=== PATIENT | female | born 1945 | race African-American/Black ===

== ENCOUNTER → 2020-08-25 08:43 | Outpatient (BNVA) | payer BC, SELFPAY | PROVIDERS: PCP Internal Medicine; Visit Provider Nurse Practitioner Family ==

== ENCOUNTER → 2020-09-08 13:15 | Outpatient (BNVA) | payer BC, SELFPAY | PROVIDERS: PCP Internal Medicine; Visit Provider Nurse Practitioner Family ==

== ENCOUNTER → 2020-09-20 11:32 | Outpatient (BNVA) | payer BC, SELFPAY | PROVIDERS: Visit Provider Nurse Practitioner Family ==

== ENCOUNTER → 2020-10-18 15:17 | Outpatient (BNVA) | payer BC, SELFPAY | PROVIDERS: PCP Counselor Mental Health; Visit Provider Nurse Practitioner Family ==

== ENCOUNTER → 2020-11-17 15:26 | Outpatient (BNVA) | payer BC, SELFPAY | PROVIDERS: Visit Provider Nurse Practitioner Family ==

== ENCOUNTER → 2020-12-05 14:07 | Outpatient (BNVA) | payer BC, SELFPAY | PROVIDERS: Visit Provider Family Medicine Adult Medicine ==

== ENCOUNTER 2020-12-20 06:29 | Outpatient (REF) | payer BC, SELFPAY ==
--- NOTE | ~2020-12-20 | FL_ITS ---
EXAMINATION: XR FLUOROSCOPY WITH IMAGES CLINICAL INFORMATION: Bilateral transforaminal epidural COMPARISON: None. TECHNIQUE: Fluoroscopy performed by Dr. Sherwin Koo. Fluoroscopy time: 1.0 minutes DAP: 6.36 Gycm2 Images: 2 FINDINGS: There are spinal needles overlying the bilateral outer L5 neural foramen. There is contrast seen in the respective nerve sheaths along with transforaminal epidural extension. No visible vascular communication. FL/FL guidance in treatment room IMPRESSION: Fluoroscopy for pain management procedures.
== END 2020-12-20 06:30 | disposition home or self-care (01) ==
LOC: HO.RADIR 06:29
PROVIDERS: Visit Provider Internal Medicine
DX: M54.16 Radiculopathy, lumbar region (principal)
CPT/HCPCS: 64483; 64484; J1100; Q9967

== ENCOUNTER → 2021-01-02 14:57 | Outpatient (BNVA) | payer BC, SELFPAY | PROVIDERS: PCP Counselor Mental Health; Visit Provider Nurse Practitioner Family | DX: M25.561 Pain in right knee (principal); M25.562 Pain in left knee; G89.29 Other chronic pain; M54.16 Radiculopathy, lumbar region ==

== ENCOUNTER → 2021-01-31 14:55 | Outpatient (BNVA) | payer BC, SELFPAY | PROVIDERS: Visit Provider Nurse Practitioner Family | DX: M25.561 Pain in right knee (principal); M25.562 Pain in left knee; G89.29 Other chronic pain; M54.16 Radiculopathy, lumbar region ==

== ENCOUNTER → 2021-02-28 09:45 | Outpatient (BNVA) | payer BC, SELFPAY | PROVIDERS: Visit Provider Nurse Practitioner Family | DX: M25.561 Pain in right knee (principal); M25.562 Pain in left knee; G89.29 Other chronic pain; M54.16 Radiculopathy, lumbar region ==

== ENCOUNTER 2021-03-28 06:51 | Outpatient (REF) | payer BC, SELFPAY | END 2021-03-28 06:52 | disposition home or self-care (01) | LOC: HO.RADIR 06:51 | PROVIDERS: Visit Provider Internal Medicine | DX: M25.561 Pain in right knee (principal); M25.562 Pain in left knee; G89.29 Other chronic pain | CPT/HCPCS: 64450 ==

== ENCOUNTER → 2021-04-02 10:01 | Outpatient (BNVA) | payer BC, SELFPAY | PROVIDERS: PCP Physician Assistant; Visit Provider Internal Medicine ==

== ENCOUNTER → 2021-04-25 10:02 | Outpatient (BNVA) | payer BC, SELFPAY | PROVIDERS: PCP Physician Assistant; Visit Provider Nurse Practitioner Family ==

== ENCOUNTER → 2021-05-29 09:50 | Outpatient (BNVA) | payer BC, SELFPAY | PROVIDERS: PCP Physician Assistant; Visit Provider Nurse Practitioner Family ==

== ENCOUNTER 2021-06-20 06:46 | Outpatient (REF) | payer BC, SELFPAY | END 2021-06-20 06:47 | disposition home or self-care (01) | LOC: HO.RADIR 06:46 | PROVIDERS: Visit Provider Internal Medicine | DX: M25.562 Pain in left knee (principal); M25.561 Pain in right knee; Z79.899 Other long term (current) drug therapy | CPT/HCPCS: 64450; 64454; 64494 ==

== ENCOUNTER → 2021-06-26 15:27 | Outpatient (BNVA) | payer BC, SELFPAY | PROVIDERS: PCP Physician Assistant; Visit Provider Nurse Practitioner Family ==

== ENCOUNTER → 2021-07-25 15:29 | Outpatient (BNVA) | payer BC, SELFPAY | PROVIDERS: PCP Physician Assistant; Visit Provider Nurse Practitioner Family ==

== ENCOUNTER → 2021-08-15 13:09 | Day surgery (SDC) | payer BC, SELFPAY ==
--- NOTE | ~2021-08-15 | FL_ITS ---
EXAMINATION: XR FLUOROSCOPY WITH IMAGES CLINICAL INFORMATION: Knee pain COMPARISON: None. TECHNIQUE: Fluoroscopy performed by Dr. Koo. Fluoroscopy time: 0.7 minutes DAP: 3.70 Gycm2 Images: 4 FINDINGS: Images show needles positioned about the distal femur and proximal tibia. There is narrowing of the medial joint space compartment with marginal spurring. Patellofemoral joint is not well seen but I suspect some prominent spurring being present. FL/FL guidance in OR IMPRESSION: Fluoroscopy provided for pain management.
--- NOTE | 2021-08-16 08:10 | MHC.SHP ---
Pre-Procedural Eval Section A Date of Service: 08/16/21 The patient is an INPATIENT: No Changes since office visit: Yes Patient answered all questions The History & Physical has been completed within 30 days and I have reviewed it.: No Section B Chief Complaint: right knee pain Relevant Family History (Specify if Yes): No Relevant Social History: None Allergies: Allergies Allergy/AdvReac Type Severity Reaction Status Date / Time blue dye AdvReac Severe n/v Verified 07/25/21 15:34 ciprofloxacin [From Cipro] AdvReac Severe mental Verified 07/25/21 15:34 status changes promethazine [From Phenergan] AdvReac Intermediate panic Verified 07/25/21 15:34 attacks tizanidine AdvReac Mild Palpitation Verified 07/25/21 15:34 s Plan Diagnosis/Plan: Unchanged I have reviewed the history and physical and performed a pertinent physical examination on my patient. No changes have occurred unless specified.
--- NOTE | 2021-08-16 09:28 | P.BOP_ITS ---
Brief Operative Note Date of Service: 08/16/21 Pre-op diagnosis: Right knee pain Post-op diagnosis: same Procedure: Cooled radiofrequency ablation of the right knee genicular nerves Surgeon: Sherwin Koo MD Anesthesia: local Was an Threading Machine Feeder Automatic used for this Procedure?: No Estimated blood loss (mL): 3 Pathology: none sent Condition: stable Disposition: same day
--- NOTE | 2021-08-16 09:30 | W.PM.OPN ---
Operative Note Operative Note Date of Service: 08/15/21 Narrative: Genicular Nerve RFL - fluoroscopic guided - Superior medial, superior lateral, and inferior medial genicular nerve radiofrequency lesioning After obtaining written consent, pre-procedure blood pressure and heart rate were stable and recorded in the nursing record. Standard monitors were applied. The patient was placed supine on the fluoroscopy table. The area overlying the peripheral nerves was widely prepped with chloraprep, allowed to dry and sterilely draped. Using fluoroscopy, the appropriate landmarks were identified. The skin overlying the target was anesthetized with 0.5% lidocaine. A 17 gauge 50mm radiofrequency needle was advanced under fluoroscopic guidance to the appropriate landmark of each peripheral nerve. Verification using lateral and AP views. Aspiration was negative for heme and synovial fluid. Impedences were verified under 600 ohms. Sensory testing (50 Hz) and then motor testing (2 Hz) confirmed needle placement at each site within the appropriate voltage thresholds. Each site was injected with 0.5 ml 2% preservative-free lidocaine. Radiofrequency lesioning was performed for 165 seconds at 80 deg Celcius tissue temperature. The needles were removed, skin cleansed and a sterile bandage was applied. The patient tolerated the procedure well and no complications were encountered. Following the procedure the patient's vital signs were stable. The patient was discharged home in good condition with post-procedural instructions. Time Out: Immediately prior to the procedure, the following was verbally confirmed that there is a signed consent form and that the correct patient, planned procedure, site and side are consistent with documentation and that necessary equipment and/or blood products are available prior to the start of the case. Complications: none EBL: <5 cc
== END ==
PROVIDERS: Visit Provider Internal Medicine
PROC: (CPT 64624; principal; 2021-08-15 13:30)
DX: M25.561 Pain in right knee (principal)
CPT/HCPCS: 64624

== ENCOUNTER → 2021-09-12 08:59 | Outpatient (BNVA) | payer BC, SELFPAY | PROVIDERS: PCP Physician Assistant; Visit Provider Nurse Practitioner Family | DX: Z13.89 Encounter for screening for other disorder (principal) ==

== ENCOUNTER → 2021-10-10 08:58 | Outpatient (BNVA) | payer BC, SELFPAY | PROVIDERS: PCP Physician Assistant; Visit Provider Anesthesiology | DX: Z51.81 Encounter for therapeutic drug level monitoring (principal); F11.20 Opioid dependence, uncomplicated | CPT/HCPCS: 99211 ==

== ENCOUNTER 2021-11-07 06:01 | Outpatient (REF) | payer BC, SELFPAY ==
--- NOTE | ~2021-11-07 | FL_ITS ---
EXAMINATION: XR FLUOROSCOPY WITH IMAGES CLINICAL INFORMATION: Radiculopathy, lumbar region. COMPARISON: . TECHNIQUE: Fluoroscopy performed by Dr. Sherwin Koo. Fluoroscopy time: 0.8 minutes DAP: 1.74 Gy-cm2 Images: 2 FINDINGS: [place] and contrast are seen adjacent to the L5 neural foramina bilaterally with some transforaminal epidural extension. FL/FL guidance in treatment room IMPRESSION: Fluoroscopy for pain management procedure.
== END 2021-11-07 06:02 | disposition home or self-care (01) ==
LOC: HO.RADIR 06:01
PROVIDERS: Visit Provider Internal Medicine
DX: M54.16 Radiculopathy, lumbar region (principal)
CPT/HCPCS: 64483; J1100; Q9966

== ENCOUNTER → 2022-02-12 09:08 | Outpatient (BNVA) | payer MEDICARE, SELFPAY | PROVIDERS: PCP Physician Assistant; Visit Provider Nurse Practitioner Family | DX: Z79.891 Long term (current) use of opiate analgesic (principal) | CPT/HCPCS: 99211 ==

== ENCOUNTER 2022-02-13 10:15 | Day surgery (SDC) | payer MEDICARE, SELFPAY ==
[2022-02-07 16:01] VITALS: BMI 37.0
--- NOTE | 2022-02-12 09:30 | HO.ANESPROP2 ---
Documented by User: Bee Tillman NP 02/12/22 09:31 HPI - Anesthesia Eval Consult details Narrative: 76yo F for Left Genicular Nerve Cooled RFA Chronic opioids PMFSH Active Problems Active Problems: All Active Problems (Updated 02/07/22 @ 15:39 by Ramona Castaneda, RN) Muscle spasm (Acute) Bilateral lumbar radiculopathy (Acute) Bilateral knee pain (Acute) Arthralgia of shoulder region, right (Acute) Status post total shoulder arthroplasty (Acute) Past Medical History Medical History (Updated 02/07/22 @ 15:39 by Ramona Castaneda, ROB) Arthralgia of shoulder region, right Elevated cholesterol HTN (hypertension) Osteoarthritis TIA (transient ischemic attack) Surgical History Surgical History (Updated 02/07/22 @ 15:39 by Ramona Castaneda RN) History of bilateral carpal tunnel release Status post total shoulder arthroplasty Social History Social History Patient Tobacco Use Status: Never used Tobacco Are you DNR?: No Advance Directives: No Advance Directives Information Provided: Yes Meds Allergies Allergy/AdvReac Type Severity Reaction Status Date / Time blue dye AdvReac Severe n/v Verified 02/12/22 09:13 ciprofloxacin [From Cipro] AdvReac Severe mental Verified 02/12/22 09:13 status changes promethazine [From Phenergan] AdvReac Intermediate panic Verified 02/12/22 09:13 attacks tizanidine AdvReac Mild Palpitation Verified 02/12/22 09:13 s Home Medications Medication Instructions Recorded Confirmed Last Taken Type amlodipine 10 mg tablet 10 mg PO DAILY 08/25/20 02/12/22 02/13/22 History atorvastatin 40 mg tablet 40 mg PO DAILY 08/25/20 02/12/22 Unknown History buspirone 5 mg tablet 5 mg PO BID 08/25/20 02/12/22 02/13/22 History pantoprazole 40 mg tablet,delayed 40 mg PO DAILY 08/25/20 02/12/22 02/13/22 History release Exam Exam Date and Time: February 12, 2022 0930 Height,Weight and Vital Signs: Height 5 ft 3 in Weight 94.801 kg Assessment and Plan Assessment Anesthesia Assessment: Chart Reviewed Documented by User: Christina Olea MD 02/13/22 10:40 PMF Past Medical History Medical History (Updated 02/07/22 @ 15:39 by Ramona Castaneda RN) Arthralgia of shoulder region, right Elevated cholesterol HTN (hypertension) Osteoarthritis TIA (transient ischemic attack) Family History Family history of problems with anesthesia: No Surgical History Surgical History (Updated 02/07/22 @ 15:39 by Ramona Castaneda RN) History of bilateral carpal tunnel release Status post total shoulder arthroplasty History of Problems with Anesthesia: No Social History Social History Patient Tobacco Use Status: Never used Tobacco Are you DNR?: No Advance Directives: No Advance Directives Information Provided: Yes Meds Allergies Allergy/AdvReac Type Severity Reaction Status Date / Time blue dye AdvReac Severe n/v Verified 02/12/22 09:13 ciprofloxacin [From Cipro] AdvReac Severe mental Verified 02/12/22 09:13 status changes promethazine [From Phenergan] AdvReac Intermediate panic Verified 02/12/22 09:13 attacks tizanidine AdvReac Mild Palpitation Verified 02/12/22 09:13 s Home Medications Medication Instructions Recorded Confirmed Last Taken Type amlodipine 10 mg tablet 10 mg PO DAILY 08/25/20 02/12/22 02/13/22 History atorvastatin 40 mg tablet 40 mg PO DAILY 08/25/20 02/12/22 Unknown History buspirone 5 mg tablet 5 mg PO BID 08/25/20 02/12/22 02/13/22 History pantoprazole 40 mg tablet,delayed 40 mg PO DAILY 08/25/20 02/12/22 02/13/22 History release Exam Airway Mallampati Class: II (Caps everything) TM Dist: >3cm Neck ROM: Full Heart: rrr Lungs: cta Assessment and Plan Assessment Anesthesia Assessment: Anesthesia Plan Discussed and Chart Reviewed Final Anesthetic Review Family History of Problems with Anesthesia: No History of Problems with Anesthesia: No NPO: Yes ASA Class: III Final Preanesthetic Review: No Changes in Pt Med Stat, Meds/Allgs Chart Reviewed and Consent Obtained/Reviewed Patient Risk: Intermediate Procedure Risk: Intermediate Anesthetic Plan Anesthetic Plan: MAC: Disposition: Standard PACU
--- NOTE | ~2022-02-13 | FL_ITS ---
EXAMINATION: XR FLUOROSCOPY WITH IMAGES CLINICAL INFORMATION: Left knee RFA. COMPARISON: None. TECHNIQUE: Fluoroscopy performed by Dr. Sherwin Koo. Fluoroscopy time: 0.6 minutes. Cumulative Dose: 8.43 mGy. DAP: 1.64 Gycm2. Images: 3. FINDINGS: There are needles positioned along the medial and lateral aspect of distal femur cortex and medial proximal tibial cortex for radiofrequency ablation. There is [id number] loss of medial compartment joint space with periarticular spurring. No acute fracture, dislocation or lytic process seen. There is lateral intercondylar eminence spurring as well. FL/FL guidance in OR IMPRESSION: Fluoroscopy guidance was provided to referrer for pain management.
[2022-02-13 10:23] VITALS: BP 150/89; PULSE 99; RESP 18; TEMP 36.3; O2SAT 96
[2022-02-13] MEDS: Lactated Ringers 1,000 ML 100 ML IVCONT (10:51)
[2022-02-13 13:18] VITALS: BP 152/76; PULSE 87; RESP 16; TEMP 36.2; O2SAT 95
[2022-02-13 13:28] VITALS: RESP 18
[2022-02-13] MEDS: fentaNYL citrate/PF 100 MCG/2 ML VIAL 50 MCG IVPUSH (13:28)
[2022-02-13] MEDS: oxyCODONE HCl Immed Release 5 MG TABLET PO (13:29)
[2022-02-13 13:34] VITALS: BP 151/92; PULSE 86; RESP 17; O2SAT 96
[2022-02-13 13:54] VITALS: BP 155/82; PULSE 87; RESP 20; TEMP 36.1; O2SAT 99
--- NOTE | 2022-02-13 16:19 | MHC.SHP ---
Pre-Procedural Eval Section A Date of Service: 02/13/22 The patient is an INPATIENT: No Changes since office visit: Yes Patient answered all questions The History & Physical has been completed within 30 days and I have reviewed it.: No Section B Chief Complaint: chronic left knee pain Relevant Family History (Specify if Yes): No Relevant Social History: None Present Medications: see Short Stay Collaborative assessment Medical History: No relevant PMH History of Previous Operations: No relevant previous surgery Allergies: Allergies Allergy/AdvReac Type Severity Reaction Status Date / Time blue dye AdvReac Severe n/v Verified 02/12/22 09:13 ciprofloxacin [From Cipro] AdvReac Severe mental Verified 02/12/22 09:13 status changes promethazine [From Phenergan] AdvReac Intermediate panic Verified 02/12/22 09:13 attacks tizanidine AdvReac Mild Palpitation Verified 02/12/22 09:13 s Review of Systems Sugical H&P ROS: Negative: Constitution, Cardiovascular and Respiratory Exam Surgical H&P Exam: Normal: HEENT, Normal: Heart and Normal: Lungs Plan Diagnosis/Plan: Unchanged I have reviewed the history and physical and performed a pertinent physical examination on my patient. No changes have occurred unless specified.
--- NOTE | 2022-02-13 16:20 | P.BOP_ITS ---
Brief Operative Note Date of Service: 02/13/22 Pre-op diagnosis: Chronic left knee pain Post-op diagnosis: same Procedure: Cooled radiofrequency ablation of the left knee genicular nerves Surgeon: Sherwin Koo MD Anesthesia: MAC Was an Engineer Intern used for this Procedure?: No Estimated blood loss (mL): 5 Pathology: none sent Condition: stable Disposition: PACU
--- NOTE | 2022-02-13 16:21 | P.OP_ITS ---
Operative Note Operative Note Date of Service: 02/13/22 Narrative: Genicular Nerve RFL - fluoroscopic guided - Superior medial, superior lateral, and inferior medial genicular nerve radiofrequency lesioning After obtaining written consent, pre-procedure blood pressure and heart rate were stable and recorded in the nursing record. Standard monitors were applied. The patient was placed supine on the fluoroscopy table and sedated. The area overlying the peripheral nerves was widely prepped with chloraprep, allowed to dry and sterilely draped. Using fluoroscopy, the appropriate landmarks were identified. The skin overlying the target was anesthetized with 0.5% lidocaine. A 18 gauge 50mm radiofrequency needle was advanced under fluoroscopic guidance to the appropriate landmark of each peripheral nerve. Verification using lateral and AP views. Aspiration was negative for heme and synovial fluid. Impedences were verified under 600 ohms. Motor testing (2 Hz) confirmed needle placement at each site within the appropriate voltage thresholds. Each site was injected with 0.5 ml 2% preservative-free lidocaine. Radiofrequency lesioning was performed for 165 seconds at 80 deg Celcius tissue temperature. Each site was then injected with 1 ml 0.5% preservative-free ropiv acaine. The needles were removed, skin cleansed and a sterile bandage was applied. The patient tolerated the procedure well and no complications were encountered. Following the procedure the patient's vital signs were stable. The patient was discharged home in good condition with post-procedural instructions. Time Out: Immediately prior to the procedure, the following was verbally confirmed that there is a signed consent form and that the correct patient, planned procedure, site and side are consistent with documentation and that necessary equipment and/or blood products are available prior to the start of the case. Complications: none EBL: <5 cc
== END 2022-02-13 14:19 | disposition home or self-care (01) ==
PROVIDERS: PCP Physician Assistant; Visit Provider Internal Medicine
PROC: (CPT 64624; principal; 2022-02-13 11:40)
DX: M25.562 Pain in left knee (principal); G89.29 Other chronic pain; M19.90 Unspecified osteoarthritis, unspecified site; M54.16 Radiculopathy, lumbar region; M62.838 Other muscle spasm; I10 Essential (primary) hypertension; Z88.1 Allergy status to other antibiotic agents; Z88.8 Allergy status to other drugs, medicaments and biological substances; Z86.73 Personal history of transient ischemic attack (TIA), and cerebral infarction without residual deficits; Z96.612 Presence of left artificial shoulder joint; Z98.890 Other specified postprocedural states
CPT/HCPCS: 64624; J0690; J2250; J3010; J3300

== ENCOUNTER → 2022-04-16 15:59 | Outpatient (BNVA) | payer MEDICARE, SELFPAY | PROVIDERS: PCP Physician Assistant; Visit Provider Nurse Practitioner Family | DX: Z51.81 Encounter for therapeutic drug level monitoring (principal); F11.20 Opioid dependence, uncomplicated; M25.561 Pain in right knee; M25.562 Pain in left knee; M54.16 Radiculopathy, lumbar region; M62.838 Other muscle spasm; G89.4 Chronic pain syndrome | CPT/HCPCS: 99212 ==

== ENCOUNTER → 2022-05-21 09:24 | Outpatient (BNVA) | payer MEDICARE, SELFPAY | PROVIDERS: PCP Physician Assistant; Visit Provider Nurse Practitioner Family | DX: Z51.81 Encounter for therapeutic drug level monitoring (principal); F11.20 Opioid dependence, uncomplicated | CPT/HCPCS: 99211 ==

== ENCOUNTER → 2022-06-20 09:19 | Outpatient (BNVA) | payer MEDICARE, SELFPAY | PROVIDERS: PCP Physician Assistant; Visit Provider Nurse Practitioner Family | DX: Z51.81 Encounter for therapeutic drug level monitoring (principal); M25.561 Pain in right knee; M25.562 Pain in left knee; M54.16 Radiculopathy, lumbar region; M62.838 Other muscle spasm; G89.29 Other chronic pain; Z79.891 Long term (current) use of opiate analgesic | CPT/HCPCS: 99212 ==

== ENCOUNTER → 2022-07-18 09:22 | Outpatient (BNVA) | payer MEDICARE, SELFPAY | PROVIDERS: PCP Physician Assistant; Visit Provider Nurse Practitioner Family | DX: Z51.81 Encounter for therapeutic drug level monitoring (principal); M25.561 Pain in right knee; M25.562 Pain in left knee; M17.0 Bilateral primary osteoarthritis of knee; M54.16 Radiculopathy, lumbar region; M62.838 Other muscle spasm; G89.29 Other chronic pain; R51.9 Headache, unspecified; Z79.891 Long term (current) use of opiate analgesic | CPT/HCPCS: 99212 ==

== ENCOUNTER → 2022-08-15 09:19 | Outpatient (BNVA) | payer MEDICARE, SELFPAY | PROVIDERS: PCP Physician Assistant; Visit Provider Nurse Practitioner Family | DX: Z51.81 Encounter for therapeutic drug level monitoring (principal); M25.561 Pain in right knee; M25.562 Pain in left knee; M17.0 Bilateral primary osteoarthritis of knee; M54.16 Radiculopathy, lumbar region; M62.838 Other muscle spasm; R51.9 Headache, unspecified; G89.29 Other chronic pain; Z79.891 Long term (current) use of opiate analgesic | CPT/HCPCS: 99212 ==

== ENCOUNTER 2022-08-19 08:42 | Outpatient (REF) | payer MEDICARE, SELFPAY ==
--- NOTE | ~2022-08-19 | XR_ITS ---
EXAMINATION: XR KNEE, RIGHT XR KNEE, LEFT XR KNEE AP STANDING CLINICAL INFORMATION: Pain. COMPARISON: None. TECHNIQUE: Four views of the right knee. Four views of the left knee. AP bilateral standing view of the knees was obtained. FINDINGS: Right knee: Bony mineralization is normal. There is marked asymmetric narrowing of the medial joint space compartment. The lateral joint space compartment is well-maintained. There is a mild varus configuration. There is marked narrowing of the patellofemoral compartment, most pronounced laterally. There is tricompartment peripheral osteophyte formation. No fracture or dislocation is seen. There is chondrocalcinosis. No fracture or dislocation is seen. No foreign body is seen. There is a dystrophic soft tissue calcification within the lower calf. Left knee: Bony mineralization is normal. There is marked asymmetric narrowing of the medial joint space compartment. The lateral joint space compartment is well-maintained. There is a mild varus configuration. There is marked narrowing of the patellofemoral compartment, most pronounced laterally. There is tricompartment peripheral osteophyte formation. There is chondrocalcinosis. No fracture or dislocation is seen. There is a soft tissue calcifications seen adjacent to the medial femoral condyle, possibly a Mendy-Stieda lesion related to a prior MCL injury. XR/XR knee standing BI IMPRESSION: 1. There is tricompartment osteoarthritic change of the right knee, most pronounced of the medial joint space compartment. There is a secondary mild varus configuration. 2. There is tricompartment osteoarthritic change of the left knee, most pronounced of the medial joint space compartment. There is a secondary mild varus configuration. 3. There is chondrocalcinosis, which may be associated with CPPD.
--- NOTE | ~2022-08-19 | XR_ITS ---
EXAMINATION: XR KNEE, RIGHT XR KNEE, LEFT XR KNEE AP STANDING CLINICAL INFORMATION: Pain. COMPARISON: None. TECHNIQUE: Four views of the right knee. Four views of the left knee. AP bilateral standing view of the knees was obtained. FINDINGS: Right knee: Bony mineralization is normal. There is marked asymmetric narrowing of the medial joint space compartment. The lateral joint space compartment is well-maintained. There is a mild varus configuration. There is marked narrowing of the patellofemoral compartment, most pronounced laterally. There is tricompartment peripheral osteophyte formation. No fracture or dislocation is seen. There is chondrocalcinosis. No fracture or dislocation is seen. No foreign body is seen. There is a dystrophic soft tissue calcification within the lower calf. Left knee: Bony mineralization is normal. There is marked asymmetric narrowing of the medial joint space compartment. The lateral joint space compartment is well-maintained. There is a mild varus configuration. There is marked narrowing of the patellofemoral compartment, most pronounced laterally. There is tricompartment peripheral osteophyte formation. There is chondrocalcinosis. No fracture or dislocation is seen. There is a soft tissue calcifications seen adjacent to the medial femoral condyle, possibly a Mendy-Stieda lesion related to a prior MCL injury. XR/XR knee RT 2V IMPRESSION: 1. There is tricompartment osteoarthritic change of the right knee, most pronounced of the medial joint space compartment. There is a secondary mild varus configuration. 2. There is tricompartment osteoarthritic change of the left knee, most pronounced of the medial joint space compartment. There is a secondary mild varus configuration. 3. There is chondrocalcinosis, which may be associated with CPPD.
--- NOTE | ~2022-08-19 | XR_ITS ---
EXAMINATION: XR KNEE, RIGHT XR KNEE, LEFT XR KNEE AP STANDING CLINICAL INFORMATION: Pain. COMPARISON: None. TECHNIQUE: Four views of the right knee. Four views of the left knee. AP bilateral standing view of the knees was obtained. FINDINGS: Right knee: Bony mineralization is normal. There is marked asymmetric narrowing of the medial joint space compartment. The lateral joint space compartment is well-maintained. There is a mild varus configuration. There is marked narrowing of the patellofemoral compartment, most pronounced laterally. There is tricompartment peripheral osteophyte formation. No fracture or dislocation is seen. There is chondrocalcinosis. No fracture or dislocation is seen. No foreign body is seen. There is a dystrophic soft tissue calcification within the lower calf. Left knee: Bony mineralization is normal. There is marked asymmetric narrowing of the medial joint space compartment. The lateral joint space compartment is well-maintained. There is a mild varus configuration. There is marked narrowing of the patellofemoral compartment, most pronounced laterally. There is tricompartment peripheral osteophyte formation. There is chondrocalcinosis. No fracture or dislocation is seen. There is a soft tissue calcifications seen adjacent to the medial femoral condyle, possibly a Mendy-Stieda lesion related to a prior MCL injury. XR/XR knee LT 2V IMPRESSION: 1. There is tricompartment osteoarthritic change of the right knee, most pronounced of the medial joint space compartment. There is a secondary mild varus configuration. 2. There is tricompartment osteoarthritic change of the left knee, most pronounced of the medial joint space compartment. There is a secondary mild varus configuration. 3. There is chondrocalcinosis, which may be associated with CPPD.
== END 2022-08-19 08:43 | disposition home or self-care (01) ==
LOC: HO.HOSX 08:42
PROVIDERS: Visit Provider Orthopaedic Surgery
DX: M17.0 Bilateral primary osteoarthritis of knee (principal)
CPT/HCPCS: 20610; 73560; 73565; 99202; J1100

== ENCOUNTER → 2022-09-12 09:42 | Outpatient (BNVA) | payer MEDICARE, SELFPAY | PROVIDERS: PCP Physician Assistant; Visit Provider Nurse Practitioner Family | DX: Z51.81 Encounter for therapeutic drug level monitoring (principal); M25.561 Pain in right knee; M25.562 Pain in left knee; M17.0 Bilateral primary osteoarthritis of knee; M54.16 Radiculopathy, lumbar region; G89.29 Other chronic pain; Z79.891 Long term (current) use of opiate analgesic | CPT/HCPCS: 99212 ==

== ENCOUNTER → 2022-09-20 09:00 | Outpatient (BNVA) | payer MEDICARE, SELFPAY | PROVIDERS: PCP Physician Assistant; Visit Provider Orthopaedic Surgery | DX: M65.331 Trigger finger, right middle finger (principal); M65.341 Trigger finger, right ring finger; M65.332 Trigger finger, left middle finger; R20.0 Anesthesia of skin | CPT/HCPCS: 99202 ==

== ENCOUNTER → 2022-10-03 12:31 | Day surgery (SDC) | payer MEDICARE, SELFPAY ==
[2022-10-03 13:09] VITALS: BMI 36.6
[2022-10-03 15:43] VITALS: BP 154/71; PULSE 97; RESP 16; TEMP 36.8; O2SAT 96
--- NOTE | 2022-10-03 15:58 | MHC.SHP ---
Pre-Procedural Eval Section A Date of Service: 10/03/22 The patient is an INPATIENT: No Changes since office visit: No Cold of Flu in the past 2 weeks, No New Medical Problems, No Changes in Medication and No Patient answered all questions The History & Physical has been completed within 30 days and I have reviewed it.: Yes Section B Chief Complaint: Trigger finger, right middle finger and ring finge Allergies: Allergies Allergy/AdvReac Type Severity Reaction Status Date / Time blue dye AdvReac Severe n/v Verified 09/12/22 09:52 ciprofloxacin [From Cipro] AdvReac Severe mental Verified 09/12/22 09:52 status changes promethazine [From Phenergan] AdvReac Intermediate panic Verified 09/12/22 09:52 attacks tizanidine AdvReac Mild Palpitation Verified 09/12/22 09:52 s Plan I have reviewed the history and physical and performed a pertinent physical examination on my patient. No changes have occurred unless specified. Time Spent With Patient Time: Total time managing care of this patient today ____ minutes.
--- NOTE | 2022-10-03 15:58 | W.PM.OPN ---
Operative Note Operative Note Date of Service: 10/03/22 Narrative: Operative Note Preop diagnosis: 1. right middle finger Trigger finger 2. Right ring finger trigger finger Postop diagnosis: same Procedure: 1. right middle finger A1 shabbir release 2. Right ring finger A1 shabbir release Surgeon: Alvina Kapoor MD Anesthesia: local block using 1% lidocaine with epinephrine Findings: No locking or catching after A1 shabbir release EBL: Less than 5 mL Tourniquet time: None Specimens: None Complications: None Disposition: Brought to recovery room in stable condition Plan: Follow-up for 10-14 days for wound check and suture removal Indications: The patient is 77 years old, with right middle finger and right ring finger trigger fingers that have been unresponsive to nonoperative management. The risks and benefits of operative treatment including but not limited to risk of damage to blood vessels, nerves, tendons, infection, persistent pain, persistent symptoms, recurrence or possible need for additional surgery were discussed with the patient and the patient wishes to proceed with surgery. Procedure: Once consent was obtained a local block was performed in the preop area using a combination of 1% lidocaine with epinephrine. The patient was then brought back to the operating suite and placed on the operative table in supine position. The right upper extremity was prepped and draped in a standard surgical fashion. Once assured that we had a good block, a 1.5 cm oblique incision was made centered over the A1 shabbir of the right ring finger . The incision was made through the skin to the subcutaneous tissues using a #15 blade. Careful dissection was made down to the level of the A1 shabbir using tenotomy scissors, with care being taken to protect the nearby neurovascular structures. A longitudinal incision was made in the A1 shabbir 1st using a #15 blade, then using tenotomy scissors under direct visualization. The A1 shabbir was noted to be thickened. Following our A1 shabbir release, we no longer saw any locking or catching of the digit with flexion and extension. Once assured that we had a good block, a 1.5 cm oblique incision was made centered over the A1 shabbir of the right middle finger . The incision was made through the skin to the subcutaneous tissues using a #15 blade. Careful dissection was made down to the level of the A1 shabbir using tenotomy scissors, with care being taken to protect the nearby neurovascular structures. A longitudinal incision was made in the A1 shabbir 1st using a #15 blade, then using tenotomy scissors under direct visualization. The A1 shabbir was noted to be thickened. Following our A1 shabbir release, we no longer saw any locking or catching of the digit with flexion and extension. Once satisfied with our A1 shabbir release the wounds were copiously irrigated with normal saline and hemostasis was obtained with a brief period of local pressure. The skin edges were reapproximated with some 5.0 nylon suture material and a sterile dressing was applied. The patient appears to have tolerated the procedure well and with no complications. All digits were well vascularized at the conclusion of the case.
== END | disposition home or self-care (01) ==
PROVIDERS: PCP Physician Assistant; Visit Provider Orthopaedic Surgery
PROC: (CPT 26055; principal; 2022-10-03 12:40)
DX: M65.331 Trigger finger, right middle finger (principal); M65.341 Trigger finger, right ring finger; M19.90 Unspecified osteoarthritis, unspecified site; I10 Essential (primary) hypertension; E78.00 Pure hypercholesterolemia, unspecified; Z88.1 Allergy status to other antibiotic agents; Z88.8 Allergy status to other drugs, medicaments and biological substances; Z91.041 Radiographic dye allergy status; Z86.73 Personal history of transient ischemic attack (TIA), and cerebral infarction without residual deficits
CPT/HCPCS: 26055 ×2; J0171

== ENCOUNTER → 2022-10-16 12:54 | Outpatient (BNVA) | payer MEDICARE, SELFPAY | PROVIDERS: PCP Physician Assistant; Visit Provider Orthopaedic Surgery | DX: Z47.89 Encounter for other orthopedic aftercare (principal) | CPT/HCPCS: 99211 ==

== ENCOUNTER 2022-11-06 09:22 | Outpatient (REF) | payer MEDICARE, SELFPAY ==
--- NOTE | 2022-11-06 09:27 | EMG_ITS ---
Please see scanned EMG / Nerve Conduction Report. MTDD
== END 2022-11-06 09:23 | disposition home or self-care (01) ==
LOC: HO.NEURO 09:22
PROVIDERS: PCP Physician Assistant; Visit Provider Orthopaedic Surgery
DX: R20.0 Anesthesia of skin (principal)
CPT/HCPCS: 95885; 95910

== ENCOUNTER → 2022-11-14 12:52 | Outpatient (BNVA) | payer MEDICARE, SELFPAY | PROVIDERS: PCP Physician Assistant; Visit Provider Nurse Practitioner Family | DX: M25.561 Pain in right knee (principal); M25.562 Pain in left knee; M17.0 Bilateral primary osteoarthritis of knee; M54.16 Radiculopathy, lumbar region; G89.29 Other chronic pain; Z79.891 Long term (current) use of opiate analgesic | CPT/HCPCS: 99212 ==

== ENCOUNTER 2022-11-29 12:10 | Outpatient (AMB) | payer MEDICARE, SELFPAY ==
[2022-11-29 12:17] VITALS: BMI 36.6
--- NOTE | 2022-11-29 12:17 | MHC.OFFVIS ---
Intake Vital Signs 11/29/22 12:17 Height 5 ft 4 in Weight 213 lb BMI 36.6 Intake Visit Reasons: OV- EMG Review CTS Lt Intake Note: Bing 77 yr old female presents today for her left hand EMG review. States she has hx of B/L CTR in 2009. Allergies blue dye Adverse Reaction (Severe, Verified 11/29/22 12:19) n/v ciprofloxacin [From Cipro] Adverse Reaction (Severe, Verified 11/29/22 12:19) mental status changes promethazine [From Phenergan] Adverse Reaction (Intermediate, Verified 11/29/22 12:19) panic attacks tizanidine Adverse Reaction (Mild, Verified 11/29/22 12:19) Palpitations HPI OV- EMG Review CTS Lt HPI Details Bing is a 77 year old right hand dominant woman who returns for a NCS review of her left hand numbness. She has dense numbness in the median nerve distribution of her left hand, which began ~1 year ago. She has normal sensation in the ulnar nerve distribution She reports a Hx of bilateral carpal tunnel releases in 2009 [facility] Medical History Arthralgia of shoulder region, right Elevated cholesterol HTN (hypertension) Osteoarthritis TIA (transient ischemic attack) Surgical History History of bilateral carpal tunnel release Status post total shoulder arthroplasty Social History Patient Tobacco Use Status: Never used Tobacco Review of Systems Const All systems reviewed & are unremarkable except as noted in HPI and below Physical Exam Vital Signs: BMI result Body Mass Index 36.6 Const General: no acute distress and alert Orientation/consciousness: patient oriented x3 Neuro General: patient oriented x3 Extrem Other: Evaluation of Left Upper Extremity: The patient is alert, oriented, and in no acute distress Neuro: Dense numbness in the median nerve distribution. Normal sensation in the ulnar nerve distribution No thenar or intrinsic wasting Still has APB muscle belly firing and good finger cross Vascular: Cap refill brisk ROM: She can make a fist and extend all her digits Nerve Conduction Study: Impression: Severe left Carpal tunnel syndrome, with mild denervation in the APB muscles Dr. Calvin 6/21/23 Psych Appearance: grossly normal Affect: normal affect Attitude: cooperative Assessment & Plan Assessment & Plan (1) Trigger finger, right middle finger: Code(s): M65.331 - Trigger finger, right middle finger (2) Trigger finger, right ring finger: Code(s): M65.341 - Trigger finger, right ring finger (3) Trigger finger, left middle finger: Code(s): M65.332 - Trigger finger, left middle finger (4) Carpal tunnel syndrome of left wrist: Code(s): G56.02 - Carpal tunnel syndrome, left upper limb Plan Assessment and plan: 1. Left Carpal tunnel syndrome, severe Recurrence S/P carpal tunnel release in ~2009 initially with good results, with numbness developing within the last year. With dense numbness in median nerve distribution I educated her about this condition I discussed treatment options The patient would like to proceed with surgery The risks and benefits of operative treatment were discussed with the patient and the patient wishes to proceed with surgery. These risks include, but are not limited to risk of damage to blood vessels, nerves, tendons, infection, recurrence, incomplete relief of preoperative symptoms, persistent pain, possible need for further surgery and the risks associated with regional blocks and anesthesia. The plan is to take the patient to the operating room sometime in the next few weeks for the following procedures: 1. Left REPEAT carpal tunnel release, under local 2. [ ] All of the preoperative paperwork including the consent was filled out today. All the patient's questions were answered. The patient understands that they will be contacted by our clinical laboratory assistant soon to schedule this procedure She denies Diabetes, blood thinners, asthma, heart, lung, kidney issues 2. Left middle finger trigger finger She denies any locking or catching today 3. Right middle finger trigger finger, S/P release 4. Right ring finger trigger finger, S/P release DOS: 10/03/22 Resolved Scribed for Alvina Kapoor MD by Jose Juan Jenkins, manager medical device, on 11/29/22 at 12:45 PM, EST. Coding Level of Care Code Est Pt Level 4 (62919) Diagnoses Trigger finger, right middle finger M65.331 Trigger finger, right ring finger M65.341 Trigger finger, left middle finger M65.332 Carpal tunnel syndrome of left wrist G56.02
== END 2022-11-29 12:50 | disposition home or self-care (01) ==
PROVIDERS: Visit Provider Orthopaedic Surgery
DX: G56.02 Carpal tunnel syndrome, left upper limb (principal); M65.331 Trigger finger, right middle finger; M65.341 Trigger finger, right ring finger; M65.332 Trigger finger, left middle finger
CPT/HCPCS: 99214

== ENCOUNTER → 2022-11-29 12:10 | Outpatient (BNVA) | payer MEDICARE, SELFPAY | PROVIDERS: Visit Provider Orthopaedic Surgery | DX: Z47.89 Encounter for other orthopedic aftercare (principal); M65.332 Trigger finger, left middle finger; G56.02 Carpal tunnel syndrome, left upper limb; Z87.39 Personal history of other diseases of the musculoskeletal system and connective tissue | CPT/HCPCS: 99212 ==

== ENCOUNTER 2022-12-05 09:50 | Outpatient (AMB) | payer MEDICARE, SELFPAY ==
--- NOTE | 2022-12-05 10:33 | A.OFFVIS_ITS ---
Intake Intake Visit Reasons: OV-B/L knee pain last inj 08/19/22 Intake Note: Bing is a 77 year old female who presents today with complaints of bilateral knee pain, last injections done 08/19/22. Patient reports that she had great relief from the injections until abot 2 weeks ago. She would like to repeat injections today. Allergies blue dye Adverse Reaction (Severe, Verified 11/29/22 12:19) n/v ciprofloxacin [From Cipro] Adverse Reaction (Severe, Verified 11/29/22 12:19) mental status changes promethazine [From Phenergan] Adverse Reaction (Intermediate, Verified 11/29/22 12:19) panic attacks tizanidine Adverse Reaction (Mild, Verified 11/29/22 12:19) Palpitations HPI OV-B/L knee pain last inj 08/19/22 HPI Details Bing is a 77 year old woman with severe bilateral knee OA. She was last seen, and injected, on 08/19/22, with good relief and she would like to repeat injections today. She says her pain returned ~2 weeks ago She continues to take Oxycodone, 5mg TID. She complains of some worsening bilateral shoulder pain. She has a hx of left TSA in ~2007 COUNTS INCLUDE 234 BEDS AT THE [facility] Medical History Arthralgia of shoulder region, right Elevated cholesterol HTN (hypertension) Osteoarthritis TIA (transient ischemic attack) Surgical History History of bilateral carpal tunnel release Status post total shoulder arthroplasty Social History Patient Tobacco Use Status: Never used Tobacco Review of Systems Const All systems reviewed & are unremarkable except as noted in HPI and below Physical Exam Const General: no acute distress and alert Orientation/consciousness: patient oriented x3 Neuro General: patient oriented x3 Extrem Other: Bilateral Knees: TTP medial compartment Psych Appearance: grossly normal Affect: normal affect Attitude: cooperative Office Procedures Joint Injection/Drain Joint Injection/Drain Details: Injected 1 mL of Decadron and 3 mL 1% lidocaine and 3 mL of 0.25% Marcaine. Site was prepped using aseptic technique. Patient tolerated the procedure well. Primary Site: right knee Secondary Site: left knee Approach Used: anterolateral Coding - Large joint 02380 - Glenohumeral/Tronchanteric Bursa/Intraarticular Procedure code (CPT) selection complete Results Reviewed Results Reviewed: 12/05/22 10:35 BUPivacaine MPF 0.25 % [Sensorcaine-MPF 0.25% 10 ML] 10 ml .ROUTE .STK-MED ONE Lidocaine HCl 1 % [Xylocaine 1 %] 2 ml .ROUTE .STK-MED ONE Lidocaine HCl 2 % MPF [Xylocaine 2 % MPF] 5 ml .ROUTE .STK-MED ONE dexAMETHasone sod phosphate [Decadron] 4 mg .ROUTE .STK-MED ONE I personally reviewed relevant radiographs. Severe right knee osteoarthritis Moderate-severe left knee osteoarthritis Assessment & Plan Assessment & Plan (1) Bilateral primary osteoarthritis of knee: Code(s): M17.0 - Bilateral primary osteoarthritis of knee Plan: This is a 76 year old woman with severe bilateral knee OA. She has pain with daily activity, worse with prolonged ambulation, and she ambulates with an antalgic gait & assistive cane. She had good relief from her previous steroid injection on 08/19/22. She is not particularly limited in her daily activity when using her cane, and continues to take Oxycodone 5mg TID. I discussed her diagnosis and treatment options. I think she would benefit from knee arthroplasty in the future, but she is not particularly limited in her activity and I am concerned about her post-op recovery due to her Oxycodone use. I injected her bilateral knees today, which she tolerated well. She can follow up prn. Plan Scribed for Anatoliy Reyna MD by Jose Juan Jenkins, medical records technician, on 12/05/22 at 10:55 AM, EST. Coding Level of Care Code Est Pt Level 3 (31873) Diagnoses Bilateral primary osteoarthritis of knee M17.0 CPT Codes Coding - 47897 Large joint: 73474 - Large joint ([id number]) Coding - Joint 7: 34741 - Glenohumeral/Tronchanteric Bursa/Intraarticular ([id number])
== END 2022-12-05 10:50 | disposition home or self-care (01) ==
PROVIDERS: Visit Provider Orthopaedic Surgery
DX: M17.0 Bilateral primary osteoarthritis of knee (principal)
CPT/HCPCS: 20610; 99213

== ENCOUNTER → 2022-12-05 09:50 | Outpatient (BNVA) | payer MEDICARE, SELFPAY | PROVIDERS: Visit Provider Orthopaedic Surgery | DX: M17.0 Bilateral primary osteoarthritis of knee (principal) | CPT/HCPCS: 20610; 99212; J1100 ==

== ENCOUNTER 2022-12-12 08:56 | Outpatient (AMB) | payer MEDICARE, SELFPAY ==
[2022-12-12 09:13] VITALS: BP 140/76; PULSE 108; O2SAT 100; BMI 36.7
--- NOTE | 2022-12-12 09:13 | A.OFFVIS_ITS ---
Intake Vital Signs 12/12/22 09:13 Height 5 ft 4 in Weight 214 lb BMI 36.7 BP 140/76 H Blood Pressure Location Rt radial Position Sitting Pulse 108 H Pulse Source Pulse Oximeter Pulse Oximetry (%) 100 Oxygen Delivery Method Room Air Intake Visit Reasons: Pill count Intake Note: Bing comes in today for a pill count to oxycodone, patient should have 75 tablets and presents with 74 tablets. Patient last took today 12/12/22 at 6am. Pain today 01/26. Bing also states that she has upcoming surgery on her right hand scheduled for december 19. Nozzle Worker Required: No Accompanied by: Self / Same As Patient Allergies blue dye Adverse Reaction (Severe, Verified 12/12/22 09:14) n/v ciprofloxacin [From Cipro] Adverse Reaction (Severe, Verified 12/12/22 09:14) mental status changes promethazine [From Phenergan] Adverse Reaction (Intermediate, Verified 12/12/22 09:14) panic attacks tizanidine Adverse Reaction (Mild, Verified 12/12/22 09:14) Palpitations HPI HPI Comments History of Present Illness Details Patient is a pleasant 77 years old female who is presenting today for her pill count. This patient is supposed to have #75 pills in her possession and has #74. This demonstrates a responsible attitude in regards to the medication regimen. Patient reports mild to moderate analgesia with oxycodone 5 mg TID prn and reports increasing bilateral knee due to severe bilateral knee OA. She recently received bilateral cortisone knee injections on 12/05/[address] Reyna. She is hoping to have knee replacement in near future and decrease her opioid intake. Denies any fever, constipation, sedation, chest pain or tightness, shortness of breaths, dizziness or urinary retention. Patient reports increased swelling in both feet and had started diuretic medication per her PCP. She is following up with her PCP today for persistent foot swelling. Patient is also due for repeat Left CTS procedure on 12/19/[address] Kapoor. For post op pain management, patient may take oxycodone QID prn (instead TID) for 1 week starting 12/19/22 and refill will be provided 1 week earlier to accommodate for this on 12/30/22. Patient is aware to notify our office for any changes in her procedure date. [facility] Medical History Arthralgia of shoulder region, right Elevated cholesterol HTN (hypertension) Osteoarthritis TIA (transient ischemic attack) Surgical History History of bilateral carpal tunnel release Status post total shoulder arthroplasty Social History Patient Tobacco Use Status: Never used Tobacco Review of Systems Const All systems reviewed & are unremarkable except as noted in HPI and below Physical Exam Vital Signs: Last Vital Signs Pulse 108 H 12/12/22 09:13 BP 140/76 H 12/12/22 09:13 Pulse Ox 100 12/12/22 09:13 Oxygen Delivery Method Room Air 12/12/22 09:13 BMI result Body Mass Index 36.7 General: Appears afebrile. Alert and oriented. Mood and affect appropriate. Follows and participates in conversation appropriately. Respiratory effort is unlabored. No cough. Able to transition from sit to stand unassisted. Ambulates with bilaterally normal heel strike and toe off. Extrem General: Yes capillary refill normal, Yes no calf tenderness, No cyanosis and Yes pedal edema (bilateral non pitting +2, left>right) Right lower extremity: knee (Limited ROM.) Details: tenderness Location: of the medial joint line and of the lateral joint line and crepitus; no swelling, no ecchymosis and no unusual warmth Left lower extremity: knee (Limited ROM.) Details: tenderness Location: of the medial joint line and of the lateral joint line and crepitus; no swelling, no ecchymosis and no unusual warmth Psych Appearance: grossly normal and well kempt Mental Status: mental status grossly normal Speech and movement: Normal speech and movement present and Clear speech present Affect: normal affect Attitude: cooperative Thought process: Normal thought process present Thought content: Normal thought content present, suicidality (none), no hallucinations and No Depressive thoughts present Insight: Good insight present (Psych) Judgement: Good judgement present (Psych) Results Reviewed Results Reviewed: XR KNEE, RIGHT XR KNEE, LEFT XR KNEE AP STANDING 08/19/22 FINDINGS: Right knee: Bony mineralization is normal. There is marked asymmetric narrowing of the medial joint space compartment. The lateral joint space compartment is well-maintained. There is a mild varus configuration. There is marked narrowing of the patellofemoral compartment, most pronounced laterally. There is tricompartment peripheral osteophyte formation. No fracture or dislocation is seen. There is chondrocalcinosis. No fracture or dislocation is seen. No foreign body is seen. There is a dystrophic soft tissue calcification within the lower calf. Left knee: Bony mineralization is normal. There is marked asymmetric narrowing of the medial joint space compartment. The lateral joint space compartment is well-maintained. There is a mild varus configuration. There is marked narrowing of the patellofemoral compartment, most pronounced laterally. There is tricompartment peripheral osteophyte formation. There is chondrocalcinosis. No fracture or dislocation is seen. There is a soft tissue calcifications seen adjacent to the medial femoral condyle, possibly a Mendy-Stieda lesion related to a prior MCL injury. IMPRESSION: 1. There is tricompartment osteoarthritic change of the right knee, most pronounced of the medial joint space compartment. There is a secondary mild varus configuration. 2. There is tricompartment osteoarthritic change of the left knee, most pronounced of the medial joint space compartment. There is a secondary mild varus configuration. 3. There is chondrocalcinosis, which may be associated with CPPD. Assessment & Plan Assessment & Plan (1) Bilateral knee pain: Code(s): M25.561 - Pain in right knee; M25.562 - Pain in left knee Qualifiers: Chronicity: chronic Qualified Code(s): M25.561 - Pain in right knee; M25.562 - Pain in left knee; G89.29 - Other chronic pain (2) Bilateral primary osteoarthritis of knee: Code(s): M17.0 - Bilateral primary osteoarthritis of knee (3) Chronic pain syndrome: Code(s): G89.4 - Chronic pain syndrome (4) Bilateral lumbar radiculopathy: Code(s): M54.16 - Radiculopathy, lumbar region (5) Opioid contract exists: Code(s): Z79.891 - senior living (current) use of opiate analgesic Plan Patient has shown accountability for her medication regimen and the pill count was accurate. The patient reported no noted side effects. There is no evidence of misuse, abuse or diversion at this time. [employer] reviewed. Patient is due for repeat Left CTS procedure on 12/19/[address] Kapoor. For post op pain management, patient may take oxycodone QID prn (instead TID) for 1 week starting 12/19/22 and refill will be provided 1 week earlier to accommodate for this on 12/30/22. Patient is aware to notify our office for any changes in her procedure date. She also has follow up with her PCP regarding persistent bilateral feet edema unresponsive to recent treatment with diuretics per patient. All questions were answered and patient is in agreement of plan. Will follow up in 4 weeks for a pill count and sooner if needed. Medications: Refilled oxycodone Partial Fill upon patient request. 5 mg PO TID PRN 90 tabs 0RF pain 30 days G89.29 - Other chronic pain, G89.4 - Chronic pain syndrome, M25.561 - Pain in right knee, M25.562 - Pain in left knee, M54.16 - Radiculopathy, lumbar region, Z79.891 - senior living (current) use of opiate analgesic Coding Level of Care Code Est Pt Level 4 (33304) Diagnoses Bilateral knee pain M25.561; M25.562; G89.29 Chronicity: chronic Bilateral primary osteoarthritis of knee M17.0 Chronic pain syndrome G89.4 Bilateral lumbar radiculopathy M54.16 Opioid contract exists Z79.891
== END 2022-12-12 09:25 | disposition home or self-care (01) ==
PROVIDERS: PCP Physician Assistant; Visit Provider Nurse Practitioner Family
DX: M25.561 Pain in right knee (principal); M25.562 Pain in left knee; G89.29 Other chronic pain; M17.0 Bilateral primary osteoarthritis of knee; G89.4 Chronic pain syndrome; M54.16 Radiculopathy, lumbar region; Z79.891 Long term (current) use of opiate analgesic
CPT/HCPCS: 99214

== ENCOUNTER → 2022-12-12 08:56 | Outpatient (BNVA) | payer MEDICARE, SELFPAY | PROVIDERS: PCP Physician Assistant; Visit Provider Nurse Practitioner Family | DX: Z51.81 Encounter for therapeutic drug level monitoring (principal); M25.561 Pain in right knee; M25.562 Pain in left knee; M17.0 Bilateral primary osteoarthritis of knee; M54.16 Radiculopathy, lumbar region; G89.29 Other chronic pain; Z79.891 Long term (current) use of opiate analgesic | CPT/HCPCS: 99212 ==

== ENCOUNTER 2022-12-19 09:24 | Day surgery (SDC) | payer MEDICARE, SELFPAY ==
--- NOTE | 2022-12-19 09:05 | W.PM.OPN ---
Operative Note Operative Note Date of Service: 12/19/22 Narrative: Preop diagnosis: 1. Recurrent left Carpal tunnel syndrome Postop diagnosis: same Procedure: 1. Repeat left Carpal tunnel release Surgeon: Alvina Kapoor MD Anesthesia: local block using 1% lidocaine with epinephrine Findings: Thickened transverse carpal ligament. EBL: Less than 5 mL Specimens: None Complications: None Disposition: Brought to recovery room in stable condition Plan: Follow-up for 10-14 days for wound check and suture removal Indications: The patient is 77 years old, with recurrent left carpal tunnel syndrome that has been unresponsive to nonoperative management. The risks and benefits of operative treatment including but not limited to risk of damage to blood vessels, nerves, tendons, infection, persistent pain, persistent symptoms, or possible need for additional surgery were discussed with the patient and the patient wishes to proceed with surgery. Procedure: Once consent was obtained a local block was performed using a combination of 1% lidocaine with epinephrine. The patient was then brought back to the operating suite and placed on the operative table in supine position. The left upper extremity was prepped and draped in a standard surgical fashion. Once assured that we had a good block, a 2.0 cm longitudinal incision was made centered over the carpal tunnel and was extended in a zigzag fashion proximal to the distal wrist crease. The incision was made through the skin to the subcutaneous tissues using a #15 blade. Dissection was made down to the level of the palmaris longus and the volar forearm fascia. Longitudinal incision was made in the volar forearm fascia revealing to us the median nerve just proximal to the carpal tunnel. Under direct visualization while protecting the median nerve the scar tissue over the carpal tunnel was released using a 15. Blade and tenotomy scissors. Once satisfied with our carpal tunnel release the wound was copiously irrigated with normal saline and hemostasis was obtained with a brief period of local pressure. The skin edges were reapproximated with some 5.0 nylon suture material and a sterile dressing was applied. The patient appears to have tolerated the procedure well and with no complications. All digits were well vascularized at the conclusion of the case.
[2022-12-19 09:40] VITALS: BP 143/71; PULSE 111; RESP 18; TEMP 37.3; O2SAT 93; BMI 36.6
--- NOTE | 2022-12-19 12:30 | MHC.SHP ---
Pre-Procedural Eval Section A Date of Service: 12/19/22 The patient is an INPATIENT: No Changes since office visit: No Cold of Flu in the past 2 weeks, No New Medical Problems, No Changes in Medication and No Patient answered all questions The History & Physical has been completed within 30 days and I have reviewed it.: Yes Section B Chief Complaint: Carpal tunnel syndrome, left upper limb Allergies: Allergies Allergy/AdvReac Type Severity Reaction Status Date / Time blue dye AdvReac Severe n/v Verified 12/12/22 09:14 ciprofloxacin [From Cipro] AdvReac Severe mental Verified 12/12/22 09:14 status changes promethazine [From Phenergan] AdvReac Intermediate panic Verified 12/12/22 09:14 attacks tizanidine AdvReac Mild Palpitation Verified 12/12/22 09:14 s Plan I have reviewed the history and physical and performed a pertinent physical examination on my patient. No changes have occurred unless specified. Time Spent With Patient Time: Total time managing care of this patient today ____ minutes.
== END 2022-12-19 13:55 | disposition home or self-care (01) ==
PROVIDERS: PCP Physician Assistant; Visit Provider Orthopaedic Surgery
PROC: (CPT 64721; principal; 2022-12-19 10:50)
DX: G56.02 Carpal tunnel syndrome, left upper limb (principal); R20.0 Anesthesia of skin; Z98.890 Other specified postprocedural states; M19.011 Primary osteoarthritis, right shoulder; I10 Essential (primary) hypertension; E78.00 Pure hypercholesterolemia, unspecified; Z86.73 Personal history of transient ischemic attack (TIA), and cerebral infarction without residual deficits; Z91.041 Radiographic dye allergy status; Z88.1 Allergy status to other antibiotic agents; Z88.8 Allergy status to other drugs, medicaments and biological substances
CPT/HCPCS: 64721; J0171

== ENCOUNTER → 2022-12-19 09:24 | Outpatient (BNV) | payer MEDICARE, SELFPAY | PROVIDERS: PCP Physician Assistant; Visit Provider Orthopaedic Surgery | DX: G56.02 Carpal tunnel syndrome, left upper limb (principal) | CPT/HCPCS: 64721 ==

== ENCOUNTER 2022-12-31 09:17 | Outpatient (AMB) | payer MEDICARE, SELFPAY ==
[2022-12-31 09:20] VITALS: BMI 36.6
--- NOTE | 2022-12-31 09:20 | A.OFFVIS_ITS ---
Intake Vital Signs 12/31/22 09:20 Height 5 ft 4 in Weight 213 lb BMI 36.6 Intake Visit Reasons: PO LT Repeat CTR 12/19/22AR Intake Note: Bing is a 77 year old right hand dominant female who presents today for a post operative appointment for her left repeat CTR 12/19/22 AR. Patient reports it feels better than before the numbness is still present but its not causing her pain anymore. Allergies blue dye Adverse Reaction (Severe, Verified 12/31/22 09:22) n/v ciprofloxacin [From Cipro] Adverse Reaction (Severe, Verified 12/31/22 09:22) mental status changes promethazine [From Phenergan] Adverse Reaction (Intermediate, Verified 12/31/22 09:22) panic attacks tizanidine Adverse Reaction (Mild, Verified 12/31/22 09:22) Palpitations HPI PO LT Repeat CTR 12/19/22AR HPI Details 77-year-old right hand dominant female who presents in the office today 12 days status post repeat left carpal tunnel release, which was performed on 12/19/[address] Kapoor. The patient reports the left hand feels better now then it did before. However she states the numbness is still present, but is not causing pain anymore. [facility] Medical History Arthralgia of shoulder region, right Elevated cholesterol HTN (hypertension) Osteoarthritis TIA (transient ischemic attack) Surgical History History of bilateral carpal tunnel release Status post total shoulder arthroplasty Social History Patient Tobacco Use Status: Never used Tobacco Review of Systems Const All systems reviewed & are unremarkable except as noted in HPI and below Physical Exam Vital Signs: BMI result Body Mass Index 36.6 Const General: cooperative, healthy appearing and no acute distress Resp Effort & Inspection: normal respiratory effort and able to speak in complete sentences Cardio Rate: regular rate Peripheral pulses: Peripheral pulses 2+ throughout GI Palpation (GI): Soft to palpation Skin Lesions: no lesions Rashes: no rashes Extrem Other: Left wrist: Incision site is clean, dry, and intact. Suture intact. Full wrist flexion, extension, ulnar, and radial deviation with no limitation. She reports numbness with slight improvement since surgery. Capillary refill is brisk. Assessment & Plan Assessment & Plan (1) Carpal tunnel syndrome of left wrist: Code(s): G56.02 - Carpal tunnel syndrome, left upper limb Plan Ms. Corley is a 77-year-old right hand dominant female who presents in the office today 12 days status post repeat left carpal tunnel release, which was performed on 12/19/[address] Kapoor. The patient reports the left hand feels better now then it did before. However she states the numbness is still present, but is not causing pain anymore. Sutures were removed and steri-stripes were applied while in the office today. She may not wash dishes for 2 weeks and no heavy lifting for the next 4 weeks. I educated the patient that it takes about 6-9 months for symptoms to improve. After that time she will be at her base line. Follow up will be PRN, or sooner if needed. Patient Instructions: Scribed for Lainey Phillips PA-C by Amara De La Cruz medical staff manager, on 12/31/2022 at 9:19 am, EST. Coding Level of Care Code Global (02898) Diagnoses Carpal tunnel syndrome of left wrist G56.02
== END 2022-12-31 09:32 | disposition home or self-care (01) ==
PROVIDERS: PCP Physician Assistant; Visit Provider Physician Assistant
DX: G56.02 Carpal tunnel syndrome, left upper limb (principal); Z47.89 Encounter for other orthopedic aftercare
CPT/HCPCS: 99024

== ENCOUNTER → 2022-12-31 09:17 | Outpatient (BNVA) | payer MEDICARE, SELFPAY | PROVIDERS: PCP Physician Assistant; Visit Provider Physician Assistant ==

== ENCOUNTER 2023-01-06 08:38 | Outpatient (REF) | payer MEDICARE, SELFPAY | END 2023-01-06 08:39 | disposition home or self-care (01) | LOC: HO.HOSX 08:38 | PROVIDERS: Visit Provider Orthopaedic Surgery | DX: Z13.89 Encounter for screening for other disorder (principal) ==

== ENCOUNTER 2023-01-09 09:21 | Outpatient (AMB) | payer MEDICARE, SELFPAY ==
--- NOTE | 2023-01-09 09:21 | A.OFFVIS_ITS ---
Intake Vital Signs 01/09/23 09:27 01/09/23 09:42 Height 5 ft 4 in Weight 209 lb BMI 35.9 BP 144/76 H Blood Pressure Location Rt brachial Position Sitting Pulse 119 H 102 H Pulse Source Pulse Oximeter Pulse Oximeter Pulse Oximetry (%) 98 Oxygen Delivery Method Room Air Intake Visit Reasons: PILL COUNT Intake Note: Bing comes in today for a pill count to oxycodone, patient should have 72 tablets and presents with 72 tablets which she last took today 01/09/23 at 3am. Pain today is 10 Occupational Nurse Required: No Accompanied by: Self / Same As Patient Allergies blue dye Adverse Reaction (Severe, Verified 01/09/23 09:28) n/v ciprofloxacin [From Cipro] Adverse Reaction (Severe, Verified 01/09/23 09:28) mental status changes promethazine [From Phenergan] Adverse Reaction (Intermediate, Verified 01/09/23 09:28) panic attacks tizanidine Adverse Reaction (Mild, Verified 01/09/23 09:28) Palpitations HPI HPI Comments History of Present Illness Details Patient is a pleasant 77 years old female who is presenting today for her pill count. This patient is supposed to have #72 pills in her possession and has #72. This demonstrates a responsible attitude in regards to the medication regimen. Patient reports mild to moderate analgesia with oxycodone 5 mg TID prn and reports increasing bilateral knee due to severe bilateral knee OA. Last bilateral cortisone knee injections on 12/05/[address] Reyna with temporary partial results. She is hoping to have knee replacement in near future and decrease her opioid intake. Denies any fever, constipation, sedation, chest pain or tightness, shortness of breaths, dizziness or urinary retention. Patient reports current migraine headache with aura with intermittent visual disturbance in her left eye. Reports this is common to her and has been addressed with her PCP. Review of chart and today, is noted for chronically elevated HR 100-120's. She attributes this to stress with driving. I will refer patient to our Cardiology providers for further evaluation. Patient is status post repeat left carpal tunnel release on 12/19/[address] Kapoor. She reports the left hand feels better now, no pain but continues to feel numbness in her left thumb, 2nd and 3rd fingers. She has followed up with Orthopedics and was told it may take up to 9 months for symptoms to improve. Her left wrist incision is well healed. [facility] Medical History (Updated 01/09/23 @ 09:42 by CRISTHIAN Post) Arthralgia of shoulder region, right Elevated cholesterol HTN (hypertension) Osteoarthritis TIA (transient ischemic attack) Surgical History (Updated 01/09/23 @ 12:49 by CRISTHIAN Post) History of bilateral carpal tunnel release Status post total shoulder arthroplasty Social History Patient Tobacco Use Status: Never used Tobacco Review of Systems Const All systems reviewed & are unremarkable except as noted in HPI and below Card Denies chest pain, Denies chest pain with activity, Denies syncope, Denies lightheadedness and Denies dyspnea Resp Denies dyspnea Neuro Denies syncope Physical Exam Vital Signs: Last Vital Signs Pulse 102 H 01/09/23 09:42 BP 144/76 H 01/09/23 09:27 Pulse Ox 98 01/09/23 09:27 Oxygen Delivery Method Room Air 01/09/23 09:27 BMI result Body Mass Index 35.9 General: Appears afebrile. Alert and oriented. Mood and affect appropriate. Follows and participates in conversation appropriately. Respiratory effort is unlabored. No cough. Able to transition from sit to stand unassisted. Ambulates with bilaterally normal heel strike and toe off. Cardio Jugular venous distension: no JVD Rate: regular rate and tachycardic Rhythm: regular rhythm Bruits: no carotid bruits Peripheral pulses: radial pulses present Extrem General: Yes capillary refill normal, Yes no calf tenderness and No cyanosis Left upper extremity: wrist (Well healed incision. Full ROM. Residual numbness thumb, 2nd and 3rd finger) Right lower extremity: knee (Limited ROM due to pain) Details: tenderness Location: of the medial joint line and of the lateral joint line and crepitus; no swelling, no ecchymosis and no unusual warmth Left lower extremity: knee (Limited ROM due to pain) Details: tenderness Location: of the medial joint line and of the lateral joint line and crepitus; no swelling, no ecchymosis and no unusual warmth Psych Appearance: grossly normal and well kempt Mental Status: mental status grossly normal Speech and movement: Normal speech and movement present and Clear speech present Affect: normal affect Attitude: cooperative Thought process: Normal thought process present Thought content: Normal thought content present, suicidality (none), no hallucinations and No Depressive thoughts present Insight: Good insight present (Psych) Judgement: Good judgement present (Psych) Assessment & Plan Assessment & Plan (1) Tachycardia: Code(s): R00.0 - Tachycardia, unspecified (2) Bilateral primary osteoarthritis of knee: Code(s): M17.0 - Bilateral primary osteoarthritis of knee (3) Chronic pain syndrome: Code(s): G89.4 - Chronic pain syndrome (4) Opioid contract exists: Code(s): Z79.891 - care home (current) use of opiate analgesic (5) Bilateral knee pain: Code(s): M25.561 - Pain in right knee; M25.562 - Pain in left knee Qualifiers: Chronicity: chronic Qualified Code(s): M25.561 - Pain in right knee; M25.562 - Pain in left knee; G89.29 - Other chronic pain (6) Status post carpal tunnel release: Code(s): Z98.890 - Other specified postprocedural states Plan Patient has shown accountability for her medication regimen and the pill count was accurate. The patient reported no noted side effects. There is no evidence of misuse, abuse or diversion at this time. [employer] reviewed. Patient is also status post left carpal tunnel releas procedure on 12/19/[address] Kapoor, incision well healed, she has mild residual numbness but no pain. Next script for oxycodone-acetaminophen 5-325 mg w Cardiology referral placed for chronic tachycardia. Patient is asymptomatic and attributes this to anxiety and stress with driving. All questions were answered and patient is in agreement of plan. Will follow up in 4 weeks for a pill count and sooner if needed. Orders: Referrals Cardiology Referral I10 - Essential (primary) hypertension, R00.0 - Tachycardia, unspecified Medications: Refilled oxycodone Partial Fill upon patient request. 5 mg PO TID 30 days PRN 90 tabs 0RF pain G89.29 - Other chronic pain, G89.4 - Chronic pain syndrome, M25.561 - Pain in right knee, M25.562 - Pain in left knee, Z79.891 - long term care pharmacist (current) use of opiate analgesic Discontinued oxycodone-acetaminophen 5-325 mg Partial Fill upon patient request. Discontinued Reason: Patient Completed Course 1 tab PO Q6H PRN 5 tabs 0RF pain Coding Level of Care Code Est Pt Level 4 (82207) Diagnoses Tachycardia R00.0 Bilateral primary osteoarthritis of knee M17.0 Chronic pain syndrome G89.4 Opioid contract exists Z79.891 Bilateral knee pain M25.561; M25.562; G89.29 Chronicity: chronic Status post carpal tunnel release Z98.890
[2023-01-09 09:27] VITALS: BP 144/76; PULSE 119; O2SAT 98; BMI 35.9
[2023-01-09 09:42] VITALS: PULSE 102
== END 2023-01-09 09:40 | disposition home or self-care (01) ==
PROVIDERS: PCP Physician Assistant; Visit Provider Nurse Practitioner Family
DX: M17.0 Bilateral primary osteoarthritis of knee (principal); G89.4 Chronic pain syndrome; Z79.891 Long term (current) use of opiate analgesic; R00.0 Tachycardia, unspecified; M25.561 Pain in right knee; M25.562 Pain in left knee; G89.29 Other chronic pain; Z98.890 Other specified postprocedural states
CPT/HCPCS: 99214

== ENCOUNTER → 2023-01-09 09:21 | Outpatient (BNVA) | payer MEDICARE, SELFPAY | PROVIDERS: PCP Physician Assistant; Visit Provider Nurse Practitioner Family | DX: Z51.81 Encounter for therapeutic drug level monitoring (principal); F11.20 Opioid dependence, uncomplicated | CPT/HCPCS: 99212 ==

== ENCOUNTER 2023-01-13 08:36 | Outpatient (AMB) | payer MEDICARE, SELFPAY ==
[2023-01-13 08:47] VITALS: BMI 35.9
--- NOTE | 2023-01-13 08:47 | A.OFFVIS_ITS ---
Intake Vital Signs 01/13/23 08:47 Height 5 ft 4 in Weight 209 lb BMI 35.9 Intake Visit Reasons: new Prob- B/L shoulder pain - no XR Intake Note: Bing is a 77 year old right hand dominant female who presents today with new complaints of bilateral shoulder pain. Patient reports that she has had bilateral shoulder pain for quite some time. She has had her left shoulder replaced about 20+ years ago in [place]. She explains that the left shoulder has been more painful than the right. She is on a pain contract wiht Pain mgmt who gives her 5mg oxycodone, she also supplements with tylenol. Allergies blue dye Adverse Reaction (Severe, Verified 01/09/23 09:28) n/v ciprofloxacin [From Cipro] Adverse Reaction (Severe, Verified 01/09/23 09:28) mental status changes promethazine [From Phenergan] Adverse Reaction (Intermediate, Verified 01/09/23 09:28) panic attacks tizanidine Adverse Reaction (Mild, Verified 01/09/23 09:28) Palpitations HPI new Prob- B/L shoulder pain - no XR HPI Details Bing is a 77 year old woman who presents with complaints of bilateral shoulder pain, L>R. She has a hx of left TSA in 2008 years ago. She complains of pain in her shoulder for some time . She has pain with daily activity along with limited ROM & some swelling. She also complains of knee pain today, with known OA. She was last seen, and injected, on 12/05/22. She says her injections were helpful and her cane gives her more relief than pain medication . She says most of her knee pain occurs with inclimate weather changes. She follows with Pain Management for chronic pain syndrome, and takes 5mg Oxycodone TID, along with Tylenol for her pain. She complains of pain in her lower back [facility] Medical History Arthralgia of shoulder region, right Elevated cholesterol HTN (hypertension) Osteoarthritis TIA (transient ischemic attack) Surgical History History of bilateral carpal tunnel release Status post total shoulder arthroplasty Social History Patient Tobacco Use Status: Never used Tobacco Review of Systems Const All systems reviewed & are unremarkable except as noted in HPI and below Physical Exam Vital Signs: BMI result Body Mass Index 35.9 Const General: no acute distress, alert and awake Orientation/consciousness: patient oriented x3 HEENT Head: Yes normocephalic and Yes atraumatic Eyes EOM: EOMs intact bilaterally Resp Effort & Inspection: normal respiratory effort and able to speak in complete sentences Cardio Jugular venous distension: no JVD Skin General skin exam: turgor normal Rashes: no rashes Neuro General: patient oriented x3 Extrem Other: Bilateral Shoulders: + Impingement test Good strength in AB Limited ER bilaterally Psych Appearance: grossly normal Affect: normal affect Attitude: cooperative Office Procedures Joint Injection/Drain Joint Injection/Drain Details: Injected 1 mL of Decadron and 3 mL 1% lidocaine and 3 mL of 0.25% Marcaine. Site was prepped using aseptic technique. Patient tolerated the procedure well. Primary Site: right shoulder Approach Used: posterolateral Coding 55962 - Large joint Procedure code (CPT) selection complete Results Reviewed Results Reviewed: I personally reviewed relevant radiographs. Severe right shoulder OA Left shoulder: presence of left TSA with proximal migration of the humeral head & glenoid osteolysis Assessment & Plan Assessment & Plan (1) Osteoarthritis of right shoulder: Code(s): M19.011 - Primary osteoarthritis, right shoulder Plan: This is a 77 year old woman with severe right shoulder OA. She has pain with daily activity, along with limited ER. She follows with Pain Management and takes Oxycodone 5mg TID, with some relief. I discussed her diagnosis and treatment options. I injected her right shoulder today, which she tolerated well. She can follow up prn. (2) History of left shoulder replacement: Comment: 2007 Code(s): Z96.612 - Presence of left artificial shoulder joint Plan: Pain with daily activity, effusion, and limited ROM. I suspect there may be a component of hardware loosening. (3) Bilateral primary osteoarthritis of knee: Code(s): M17.0 - Bilateral primary osteoarthritis of knee Plan: Injected on 12/05/22, with some relief. She is not particularly limited in her daily activity when using her cane, and continues to take Oxycodone 5mg TID. Her complaint is of worsening pain related to inclimate weather. (4) Opioid contract exists: Code(s): Z79.891 - custodial (current) use of opiate analgesic (5) Chronic pain syndrome: Code(s): G89.4 - Chronic pain syndrome Plan Scribed for Anatoliy Reyna MD by Jose Juan Jenkins, medical records coordinator, on 01/13/23 at 9:15 AM, EST. Orders: Orders XR shoulder LT min 2V Today M25.519 - Pain in unspecified shoulder XR shoulder RT min 2V Today M25.519 - Pain in unspecified shoulder Coding Level of Care Code Est Pt Level 4 (16140) Diagnoses Osteoarthritis of right shoulder M19.011 History of left shoulder replacement Z96.612 Bilateral primary osteoarthritis of knee M17.0 Opioid contract exists Z79.891 Chronic pain syndrome G89.4 CPT Codes Coding - 56948 Large joint: 67921 - Large joint ([id number])
== END 2023-01-13 09:36 | disposition home or self-care (01) ==
PROVIDERS: PCP Physician Assistant; Visit Provider Orthopaedic Surgery
DX: M19.011 Primary osteoarthritis, right shoulder (principal); Z96.612 Presence of left artificial shoulder joint; M17.0 Bilateral primary osteoarthritis of knee; G89.4 Chronic pain syndrome
CPT/HCPCS: 20610; 99214

== ENCOUNTER 2023-01-13 08:38 | Outpatient (REF) | payer MEDICARE, SELFPAY ==
--- NOTE | ~2023-01-13 | XR_ITS ---
EXAMINATION: XR SHOULDER, RIGHT CLINICAL INFORMATION: Pain in unspecified shoulder COMPARISON: None available. TECHNIQUE: AP external rotation, Grashey, scapular Y, and axillary views of the right shoulder. FINDINGS: The bones are intact. No fracture. Glenohumeral and acromioclavicular alignment is anatomic. There is severe narrowing of the glenohumeral joint with [id number] appearance and large marginal osteophyte extending off the inferior aspect of the humeral head. Small marginal osteophyte is seen extending off the inferior aspect of the glenoid. There is minimal degenerative change of the acromioclavicular joint.. No abnormal soft tissue calcifications. XR/XR shoulder RT min 2V IMPRESSION: Severe osteoarthritis of the glenohumeral joint.
--- NOTE | ~2023-01-13 | XR_ITS ---
EXAMINATION: XR SHOULDER, LEFT CLINICAL INFORMATION: Pain in unspecified shoulder COMPARISON: None available. TECHNIQUE: AP external rotation, Grashey, scapular Y, and axillary views of the left shoulder. FINDINGS: The bones are intact. No fracture. 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 The hardware appears intact. There is superior subluxation of the humeral head with respect to the glenoid. The acromioclavicular joint is within normal limits. No abnormal soft tissue calcifications. XR/XR shoulder LT min 2V IMPRESSION: 1. No acute bony abnormality. 2. Prosthetic humeral head intact. 3. Superior subluxation of the humeral head with respect to the glenoid.
== END 2023-01-13 08:39 | disposition home or self-care (01) ==
LOC: HO.HOSX 08:38
PROVIDERS: Visit Provider Orthopaedic Surgery
DX: M19.011 Primary osteoarthritis, right shoulder (principal); M17.0 Bilateral primary osteoarthritis of knee; Z96.612 Presence of left artificial shoulder joint; Z79.891 Long term (current) use of opiate analgesic
CPT/HCPCS: 20610; 73030; 99212

== ENCOUNTER 2023-02-06 10:06 | Outpatient (AMB) | payer MEDICARE, SELFPAY ==
--- NOTE | 2023-02-06 10:06 | MHC.OFFVIS ---
Intake Vital Signs 02/06/23 10:15 Height 5 ft 4 in Weight 209 lb BMI 35.9 BP 183/83 H Blood Pressure Location Rt brachial Position Sitting Pulse 88 Pulse Source Pulse Oximeter Pulse Oximetry (%) 98 Oxygen Delivery Method Room Air Intake Visit Reasons: Pill Count/Confirmed Intake Note: Bing comes in today for a pill count to oxycodone, patient should have 78 tablets and presents with 78 tablets which she last took today 02/06/23 at 8am. Pain today 02/25. Key Worker Required: No Accompanied by: Self / Same As Patient Allergies blue dye Adverse Reaction (Severe, Verified 02/06/23 10:07) n/v ciprofloxacin [From Cipro] Adverse Reaction (Severe, Verified 02/06/23 10:07) mental status changes promethazine [From Phenergan] Adverse Reaction (Intermediate, Verified 02/06/23 10:07) panic attacks tizanidine Adverse Reaction (Mild, Verified 02/06/23 10:07) Palpitations HPI HPI Comments History of Present Illness Details Patient presents today for her pill count. This patient is supposed to have #78 pills in her possession and has #78. This demonstrates a responsible attitude in regards to the medication regimen. Patient reports adequate analgesia with oxycodone 5 mg TID prn with periods of moderate to severe knee and lower back pain due to cold weather changes or prolonged walking and distance. She follows with Orthopedic office for knee and shoulder pain and had discussion for total knee replacement. Patient reports cortisone knee injections provide her good but temporary pain relief. She ambulates with slow, antalgic gait with the use of cane. Denies any fever, sedation, chest pain or tightness, shortness of breaths, dizziness or urinary retention. Patient reports occasional constipation mildly relieved with stool softener and request script for laxative for as needed basis. Patient reports she also tries to incorporate dietary fiber and adequate daily fluid intake on regular basis. [facility], [facility] Medical History TIA (transient ischemic attack) Osteoarthritis Elevated cholesterol HTN (hypertension) Arthralgia of shoulder region, right Surgical History (Updated 02/06/23 @ 13:52 by CRISTHIAN Post) Status post carpal tunnel release History of bilateral carpal tunnel release Status post total shoulder arthroplasty Social History Patient Tobacco Use Status: Never used Tobacco Review of Systems Const All systems reviewed & are unremarkable except as noted in HPI and below Physical Exam Vital Signs: Last Vital Signs Pulse 88 02/06/23 10:15 BP 183/83 H 02/06/23 10:15 Pulse Ox 98 02/06/23 10:15 Oxygen Delivery Method Room Air 02/06/23 10:15 BMI result Body Mass Index 35.9 General: Appears afebrile. Alert and oriented. Mood and affect appropriate. Follows and participates in conversation appropriately. Respiratory effort is unlabored. No cough. Able to transition from sit to stand unassisted. Slow, antalgic gait. Uses cane with ambulation. Lumbar extension and flexion reproduces low back pain. Localized tenderness medial and joint aspects of both knees. Psych Appearance: grossly normal and well kempt Mental Status: mental status grossly normal Speech and movement: Normal speech and movement present and Clear speech present Affect: normal affect Attitude: cooperative Thought process: Normal thought process present Thought content: Normal thought content present, suicidality (none), no hallucinations and No Depressive thoughts present Insight: Good insight present (Psych) Judgement: Good judgement present (Psych) Results Reviewed Results Reviewed: XR KNEE, RIGHT XR KNEE, LEFT XR KNEE AP STANDING 08/19/22 FINDINGS: Right knee: Bony mineralization is normal. There is marked asymmetric narrowing of the medial joint space compartment. The lateral joint space compartment is well-maintained. There is a mild varus configuration. There is marked narrowing of the patellofemoral compartment, most pronounced laterally. There is tricompartment peripheral osteophyte formation. No fracture or dislocation is seen. There is chondrocalcinosis. No fracture or dislocation is seen. No foreign body is seen. There is a dystrophic soft tissue calcification within the lower calf. Left knee: Bony mineralization is normal. There is marked asymmetric narrowing of the medial joint space compartment. The lateral joint space compartment is well-maintained. There is a mild varus configuration. There is marked narrowing of the patellofemoral compartment, most pronounced laterally. There is tricompartment peripheral osteophyte formation. There is chondrocalcinosis. No fracture or dislocation is seen. There is a soft tissue calcifications seen adjacent to the medial femoral condyle, possibly a Mendy-Stieda lesion related to a prior MCL injury. IMPRESSION: 1. There is tricompartment osteoarthritic change of the right knee, most pronounced of the medial joint space compartment. There is a secondary mild varus configuration. 2. There is tricompartment osteoarthritic change of the left knee, most pronounced of the medial joint space compartment. There is a secondary mild varus configuration. 3. There is chondrocalcinosis, which may be associated with CPPD. Assessment & Plan Assessment & Plan (1) Opioid contract exists: Code(s): Z79.891 - terminal block assembler (current) use of opiate analgesic (2) Tachycardia: Code(s): R00.0 - Tachycardia, unspecified (3) Bilateral primary osteoarthritis of knee: Code(s): M17.0 - Bilateral primary osteoarthritis of knee (4) Chronic pain syndrome: Code(s): G89.4 - Chronic pain syndrome (5) Bilateral knee pain: Code(s): M25.561 - Pain in right knee; M25.562 - Pain in left knee Qualifiers: Chronicity: chronic Qualified Code(s): M25.561 - Pain in right knee; M25.562 - Pain in left knee; G89.29 - Other chronic pain Plan Patient has shown accountability for her medication regimen and the pill count was accurate. The patient reported no noted side effects except occasional constipation. Will add laxative for as needed use. There is no evidence of misuse, abuse or diversion at this time. Sensitive Object reviewed. Next script for oxycodone-acetaminophen 5-325 mg TID prn is sent with advanced date of 03/03/23. Follow up in 4 weeks for pill count and sooner if needed. Medications: New sennosides (Senna Laxative) 8.6 mg PO BID PRN 60 tabs 0RF constipation Z79.891 - terminal block assembler (current) use of opiate analgesic Refilled oxycodone Partial Fill upon patient request. 5 mg PO TID PRN 90 tabs 0RF pain 30 days G89.29 - Other chronic pain, G89.4 - Chronic pain syndrome, M25.561 - Pain in right knee, M25.562 - Pain in left knee, Z79.891 - skilled nursing (current) use of opiate analgesic Discontinued oxycodone Partial Fill upon patient request. Discontinued Reason: Duplicate 5 mg PO TID 30 days PRN 90 tabs 0RF pain G89.29 - Other chronic pain, G89.4 - Chronic pain syndrome, M25.561 - Pain in right knee, M25.562 - Pain in left knee, M54.16 - Radiculopathy, lumbar region, Z79.891 - skilled nursing (current) use of opiate analgesic Coding Level of Care Code Est Pt Level 4 (04934) Diagnoses Opioid contract exists Z79.891 Tachycardia R00.0 Bilateral primary osteoarthritis of knee M17.0 Chronic pain syndrome G89.4 Chronic pain of both knees M25.561; M25.562; G89.29 Chronicity: chronic
[2023-02-06 10:15] VITALS: BP 183/83; PULSE 88; O2SAT 98; BMI 35.9
== END 2023-02-06 10:24 | disposition home or self-care (01) ==
PROVIDERS: PCP Physician Assistant; Visit Provider Nurse Practitioner Family
DX: M17.0 Bilateral primary osteoarthritis of knee (principal); G89.4 Chronic pain syndrome; Z79.891 Long term (current) use of opiate analgesic; R00.0 Tachycardia, unspecified; M25.561 Pain in right knee; M25.562 Pain in left knee; G89.29 Other chronic pain
CPT/HCPCS: 99214

== ENCOUNTER → 2023-02-06 10:06 | Outpatient (BNVA) | payer MEDICARE, SELFPAY | PROVIDERS: PCP Physician Assistant; Visit Provider Nurse Practitioner Family | DX: G89.4 Chronic pain syndrome (principal); M17.0 Bilateral primary osteoarthritis of knee; R00.0 Tachycardia, unspecified; Z79.891 Long term (current) use of opiate analgesic | CPT/HCPCS: 99212 ==

== ENCOUNTER → 2023-03-06 09:15 | Outpatient (BNVA) | payer MEDICARE, SELFPAY | PROVIDERS: PCP Physician Assistant; Visit Provider Nurse Practitioner Family ==

== ENCOUNTER 2023-03-31 09:52 | Outpatient (AMB) | payer MEDICARE, SELFPAY ==
--- NOTE | 2023-03-31 09:54 | MHC.OFFVIS ---
Intake Vital Signs 03/31/23 10:01 Height 5 ft 4 in Weight 200 lb BMI 34.3 BP 181/80 H Blood Pressure Location Rt brachial Position Sitting Pulse 119 H Pulse Source Pulse Oximeter Pulse Oximetry (%) 96 Oxygen Delivery Method Room Air Intake Visit Reasons: PILL COUNT/LMOVM Intake Note: Bing comes in today for a pill count to oxycodone, patient should have 6 tablets and presents with 9 tablets which she last took today 03/31/23 at 4am. 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 This patient is supposed to have #6 pills in her possession and has #9. This demonstrates a responsible attitude in regards to the medication regimen. Patient reports inadequate analgesia with oxycodone 5 mg TID prn with frequent episodes of moderate to severe bilateral knee and shoulder pain due to cold weather changes, climbing stairs and prolonged walking. She has history of left shoulder replacement in 2007. Last right shoulder steroid injection on in December 2022 and bilateral knee steroid inejctions in 2022. Patient reports she is following up with Orthopedic office for knee and shoulder pain to repeat shoulder cortisone injection and consider gel injections for her knee pain and obtain knee bracing. Surgical discussion were also previously attempted. Patient reports cortisone knee injections provide her good but temporary pain relief. She ambulates with slow, antalgic gait with the use of cane. Pain negatively affects her daily functioning, ADLs, ability to walk or stand for longer periods of time. Current regime provides her partial pain relief that allows her to be less symptomatic. Denies any fever, sedation, chest pain or tightness, shortness of breaths, dizziness or urinary retention. Patient reports occasional constipation mildly relieved with stool softener and request script for laxative for as needed basis. [facility] Medical History TIA (transient ischemic attack) Osteoarthritis Elevated cholesterol HTN (hypertension) Arthralgia of shoulder region, right Surgical History Status post carpal tunnel release History of bilateral carpal tunnel release Status post total shoulder arthroplasty Social History Patient Tobacco Use Status: Never used Tobacco Review of Systems Const All systems reviewed & are unremarkable except as noted in HPI and below Physical Exam Vital Signs: Last Vital Signs Pulse 119 H 03/31/23 10:01 BP 181/80 H 03/31/23 10:01 Pulse Ox 96 03/31/23 10:01 Oxygen Delivery Method Room Air 03/31/23 10:01 BMI result Body Mass Index 34.3 General: Appears afebrile. Alert and oriented. Mood and affect appropriate. Follows and participates in conversation appropriately. Respiratory effort is unlabored. No cough. Able to transition from sit to stand unassisted. Slow, antalgic gait. Uses cane with ambulation. Lumbar extension and flexion reproduces low back pain. Localized tenderness medial and joint aspects of both knees. Limited ROM. Patient has difficulty with overhead reaches or reaching her back pocket, right>left. Extrem General: Yes capillary refill normal, Yes no clubbing, cyanosis or edema and Yes no calf tenderness Psych Appearance: grossly normal and well kempt Mental Status: mental status grossly normal Speech and movement: Normal speech and movement present and Clear speech present Affect: normal affect Attitude: cooperative Thought process: Normal thought process present Thought content: Normal thought content present, suicidality (none), no hallucinations and No Depressive thoughts present Insight: Good insight present (Psych) Judgement: Good judgement present (Psych) Results Reviewed Results Reviewed: XR KNEE, RIGHT XR KNEE, LEFT XR KNEE AP STANDING 08/19/22 FINDINGS: Right knee: Bony mineralization is normal. There is marked asymmetric narrowing of the medial joint space compartment. The lateral joint space compartment is well-maintained. There is a mild varus configuration. There is marked narrowing of the patellofemoral compartment, most pronounced laterally. There is tricompartment peripheral osteophyte formation. No fracture or dislocation is seen. There is chondrocalcinosis. No fracture or dislocation is seen. No foreign body is seen. There is a dystrophic soft tissue calcification within the lower calf. Left knee: Bony mineralization is normal. There is marked asymmetric narrowing of the medial joint space compartment. The lateral joint space compartment is well-maintained. There is a mild varus configuration. There is marked narrowing of the patellofemoral compartment, most pronounced laterally. There is tricompartment peripheral osteophyte formation. There is chondrocalcinosis. No fracture or dislocation is seen. There is a soft tissue calcifications seen adjacent to the medial femoral condyle, possibly a Mendy-Stieda lesion related to a prior MCL injury. IMPRESSION: 1. There is tricompartment osteoarthritic change of the right knee, most pronounced of the medial joint space compartment. There is a secondary mild varus configuration. 2. There is tricompartment osteoarthritic change of the left knee, most pronounced of the medial joint space compartment. There is a secondary mild varus configuration. 3. There is chondrocalcinosis, which may be associated with CPPD. XR SHOULDER, RIGHT 01/13/23 FINDINGS: The bones are intact. No fracture. Glenohumeral and acromioclavicular alignment is anatomic. There is severe narrowing of the glenohumeral joint with [id number] appearance and large marginal osteophyte extending off the inferior aspect of the humeral head. Small marginal osteophyte is seen extending off the inferior aspect of the glenoid. There is minimal degenerative change of the acromioclavicular joint.. No abnormal soft tissue calcifications. IMPRESSION: Severe osteoarthritis of the glenohumeral joint. XR SHOULDER, LEFT 01/13/23 FINDINGS: The bones are intact. No fracture. 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 The hardware appears intact. There is superior subluxation of the humeral head with respect to the glenoid. The acromioclavicular joint is within normal limits. No abnormal soft tissue calcifications. IMPRESSION: 1. No acute bony abnormality. 2. Prosthetic humeral head intact. 3. Superior subluxation of the humeral head with respect to the glenoid. Assessment & Plan Assessment & Plan (1) Opioid contract exists: Code(s): Z79.891 - remote computer terminal operator (current) use of opiate analgesic (2) Bilateral primary osteoarthritis of knee: Code(s): M17.0 - Bilateral primary osteoarthritis of knee (3) Chronic pain syndrome: Code(s): G89.4 - Chronic pain syndrome (4) Bilateral knee pain: Code(s): M25.561 - Pain in right knee; M25.562 - Pain in left knee Qualifiers: Chronicity: chronic Qualified Code(s): M25.561 - Pain in right knee; M25.562 - Pain in left knee; G89.29 - Other chronic pain (5) Bilateral shoulder pain: Code(s): M25.511 - Pain in right shoulder; M25.512 - Pain in left shoulder Plan Patient has shown accountability for her medication regimen and the pill count was accurate. The patient reported no noted side effects except occasional constipation. Will add laxative for as needed use. There is no evidence of misuse, abuse or diversion at this time. MassPAT reviewed. Will increase oxycodone-acetaminophen 5-325 mg to QID prn (up from TID), script sent today. Refill sent for Narcan too. Follow up with Orthopedics as planned. All questions and concerns have been answered and patient agreed with the plan. Follow up in 4 weeks for pill count and sooner if needed. Medications: New naloxone 4 mg/actuation (Narcan) spray 1 dose into ONE nostril; alternate nostrils w each dose until help arrives 4 mg intranasal Q2M PRN 2 ea 0RF opioid overdose G89.4 - Chronic pain syndrome, Z79.891 - remote computer terminal operator (current) use of opiate analgesic Changed From oxycodone Partial Fill upon patient request. 5 mg PO TID 30 days PRN 90 tabs 0RF pain G89.29 - Other chronic pain, G89.4 - Chronic pain syndrome, M25.561 - Pain in right knee, M25.562 - Pain in left knee, Z79.891 - remote computer terminal operator (current) use of opiate analgesic To oxycodone Partial Fill upon patient request. 5 mg PO QID 30 days PRN 120 tabs 0RF pain MDD 4 G89.29 - Other chronic pain, G89.4 - Chronic pain syndrome, M25.561 - Pain in right knee, M25.562 - Pain in left knee, Z79.891 - senior living (current) use of opiate analgesic Coding Level of Care Code Est Pt Level 4 (02704) Diagnoses Opioid contract exists Z79.891 Bilateral primary osteoarthritis of knee M17.0 Chronic pain syndrome G89.4 Chronic pain of both knees M25.561; M25.562; G89.29 Chronicity: chronic Bilateral shoulder pain M25.511; M25.512
[2023-03-31 10:01] VITALS: BP 181/80; PULSE 119; O2SAT 96; BMI 34.3
== END 2023-03-31 10:14 | disposition home or self-care (01) ==
PROVIDERS: PCP Physician Assistant; Visit Provider Nurse Practitioner Family
DX: M17.0 Bilateral primary osteoarthritis of knee (principal); G89.4 Chronic pain syndrome; Z79.891 Long term (current) use of opiate analgesic; M25.562 Pain in left knee; M25.561 Pain in right knee; G89.29 Other chronic pain; M25.511 Pain in right shoulder; M25.512 Pain in left shoulder
CPT/HCPCS: 99214

== ENCOUNTER → 2023-03-31 09:52 | Outpatient (BNVA) | payer MEDICARE, SELFPAY | PROVIDERS: PCP Physician Assistant; Visit Provider Nurse Practitioner Family | DX: Z51.81 Encounter for therapeutic drug level monitoring (principal); M17.0 Bilateral primary osteoarthritis of knee; M25.561 Pain in right knee; M25.562 Pain in left knee; M25.511 Pain in right shoulder; M25.512 Pain in left shoulder; G89.29 Other chronic pain; Z79.891 Long term (current) use of opiate analgesic | CPT/HCPCS: 99212 ==

== ENCOUNTER 2023-04-14 09:35 | Outpatient (AMB) | payer MEDICARE, SELFPAY ==
--- NOTE | 2023-04-14 09:37 | A.OFFVIS_ITS ---
Intake Vital Signs 04/14/23 09:44 Height 5 ft 4 in Weight 200 lb BMI 34.3 Intake Visit Reasons: OV- RT shoulder pain Intake Note: Bing is a 77 year old right hand dominant female who presents today for follow up of her right shoulder. Last injection was done on 01/13/23. Hx of left TSA. Patient reports that this injection was only mildly helpful, it only gave about 2 days of releif. Allergies blue dye Adverse Reaction (Severe, Verified 04/14/23 09:37) n/v ciprofloxacin [From Cipro] Adverse Reaction (Severe, Verified 04/14/23 09:37) mental status changes promethazine [From Phenergan] Adverse Reaction (Intermediate, Verified 04/14/23 09:37) panic attacks tizanidine Adverse Reaction (Mild, Verified 04/14/23 09:37) Palpitations HPI OV- RT shoulder pain HPI Details Bing is a 77 year old woman who returns for a follow-up of her right shoulder OA. She has a hx of left TSA in ~2007. She complains of pain in her shoulder for some time . She has pain with daily activity along with limited ROM & some swelling. She received a steroid injection on 01/13/23, with mild & short relief, saying this lasted for ~2 days only. In regards to her left shoulder, she says her pain was good for ~10 years following her TSA, but then her pain returned and now occurs with daily activity. She describes this as a painful muscle spasm in her shoulder with use. She also complains of knee pain today, with known OA. Her knees were last injected on 12/05/22. She says her injections were helpful and her cane gives her more relief than pain medication . She says most of her knee pain occurs with inclimate weather changes. She follows with Pain Management for chronic pain syndrome, and takes 5mg Oxycodone TID, along with Tylenol for her pain. She complains of pain in her lower back [facility] Medical History TIA (transient ischemic attack) Osteoarthritis Elevated cholesterol HTN (hypertension) Arthralgia of shoulder region, right Surgical History Status post carpal tunnel release History of bilateral carpal tunnel release Status post total shoulder arthroplasty Patient Tobacco Use Status: Never used Tobacco Review of Systems Const All systems reviewed & are unremarkable except as noted in HPI and below Physical Exam Vital Signs: BMI result Body Mass Index 34.3 Const General: no acute distress, alert and awake Orientation/consciousness: patient oriented x3 HEENT Head: Yes normocephalic and Yes atraumatic Eyes EOM: EOMs intact bilaterally Resp Effort & Inspection: normal respiratory effort and able to speak in complete sentences Cardio Jugular venous distension: no JVD Skin General skin exam: turgor normal Rashes: no rashes Neuro General: patient oriented x3 Extrem Other: Right shoulder + Impingement test Good strength in AB Limited ER bilaterally Left shoulder: + lift off and pain with eccentric abduction phase Psych Appearance: grossly normal Affect: normal affect Attitude: cooperative Office Procedures Joint Injection/Drain Joint Injection/Drain Details: Injected 1 mL of Decadron and 3 mL 1% lidocaine and 3 mL of 0.25% Marcaine. Site was prepped using aseptic technique. Patient tolerated the procedure well. Primary Site: right knee Secondary Site: left knee Approach Used: anterolateral Coding - Large joint - Glenohumeral/Tronchanteric Bursa/Intraarticular Procedure code (CPT) selection complete Results Reviewed Results Reviewed: I personally reviewed relevant radiographs. Severe right shoulder OA Left shoulder: presence of left TSA with proximal migration of the humeral head & glenoid osteolysis Assessment & Plan Assessment & Plan (1) Osteoarthritis of right shoulder: Code(s): M19.011 - Primary osteoarthritis, right shoulder Plan: This is a 77 year old woman with severe right shoulder OA. She has pain with daily activity, along with limited ER. She follows with Pain Management and takes Oxycodone 5mg QID, with some relief. She was last injected on 01/13/23 with ~2 days of relief. I discussed her diagnosis and treatment options. She would like to defer an injection at this time. She will follow up prn, when she would like an injection. (2) History of left shoulder replacement: Comment: 2007 Code(s): Z96.612 - Presence of left artificial shoulder joint Plan: Pain with daily activity, effusion, and limited ROM. SHe likely has a subscap tear and superior cuff insufficiency. She grant not want surgery. I do think a revision to a reverse would help her (3) Bilateral primary osteoarthritis of knee: Code(s): M17.0 - Bilateral primary osteoarthritis of knee Plan: Injected on 12/05/22, with some relief. She is not particularly limited in her daily activity when using her cane, and continues to take Oxycodone 5mg QID. Her complaint is of worsening pain related to inclimate weather. I injected her bilateral knees today, which she tolerated well. She can follow up prn. (4) Opioid contract exists: Code(s): Z79.891 - skilled nursing (current) use of opiate analgesic (5) Chronic pain syndrome: Code(s): G89.4 - Chronic pain syndrome Plan Scribed for Anatoliy Reyna MD by Jose Juan Jenkins, medical associate, on 04/14/23 at 10:05 AM, EST. Coding Level of Care Code Est Pt Level 4 (55166) Diagnoses Osteoarthritis of right shoulder M19.011 History of left shoulder replacement Z96.612 Bilateral primary osteoarthritis of knee M17.0 Opioid contract exists Z79.891 Chronic pain syndrome G89.4 CPT Codes Coding - 94347 Large joint: 16230 - Large joint ([id number]) Coding - Joint 7: 29081 - Glenohumeral/Tronchanteric Bursa/Intraarticular ([id number])
[2023-04-14 09:44] VITALS: BMI 34.3
== END 2023-04-14 11:07 | disposition home or self-care (01) ==
PROVIDERS: PCP Physician Assistant; Visit Provider Orthopaedic Surgery
DX: M19.011 Primary osteoarthritis, right shoulder (principal); Z96.612 Presence of left artificial shoulder joint; M17.0 Bilateral primary osteoarthritis of knee; Z79.891 Long term (current) use of opiate analgesic; G89.4 Chronic pain syndrome
CPT/HCPCS: 20610; 99214

== ENCOUNTER → 2023-04-14 09:35 | Outpatient (BNVA) | payer MEDICARE, SELFPAY | PROVIDERS: PCP Physician Assistant; Visit Provider Orthopaedic Surgery | DX: M19.011 Primary osteoarthritis, right shoulder (principal); M17.0 Bilateral primary osteoarthritis of knee; Z96.612 Presence of left artificial shoulder joint; G89.4 Chronic pain syndrome; Z79.891 Long term (current) use of opiate analgesic | CPT/HCPCS: 20610; 99212; J0665; J1100 ==

== ENCOUNTER 2023-04-28 09:23 | Outpatient (AMB) | payer MEDICARE, SELFPAY ==
--- NOTE | 2023-04-28 09:24 | A.OFFVIS_ITS ---
Intake Vital Signs 04/28/23 09:29 04/28/23 09:35 Height 5 ft 4 in Weight 205 lb BMI 35.2 BP 138/77 Blood Pressure Location Rt brachial Position Sitting Sitting Pulse 127 H 105 H Pulse Source Pulse Oximeter Pulse Oximeter Pulse Oximetry (%) 99 99 Oxygen Delivery Method Room Air Room Air Intake Visit Reasons: Medication Count/confirmed Intake Note: Bing comes in today for a pill count to oxycodone, patient should have 16 tablets and presents with 15 tablets which she last took today 04/28/23 at 4:30am. 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 This patient is supposed to have #16 pills in her possession and has #15. Patient denies any side effects from medication. Patient reports current opioid regime allows her to be less symptomatic and more functional. Patient reports she recently had bilateral knee cortisone injections by Dr. Reyna on 04/14/23 with good results and better mobility. She states her left shoulder pain has been more prominent now as knee pain decreased. Patient reports she declined revision left shoulder surgery but would like to reconsider it. Patient was reminded of her upcoming cardiology appointment on 04/30/23 for persistent tachycardia. Denies any recent cough, cold, infection, fever, chest pain, shortness of breaths, dizziness or other significant changes in medical history since last office visit. PRIOR: Patient presents today for her pill count. This patient is supposed to have #6 pills in her possession and has #9. This demonstrates a responsible attitude in regards to the medication regimen. Patient reports inadequate analgesia with oxycodone 5 mg TID prn with frequent episodes of moderate to severe bilateral knee and shoulder pain due to cold weather changes, climbing stairs and prolonged walking. She has history of left shoulder replacement in 2007. Last right shoulder steroid injection on in December 2022 and bilateral knee steroid inejctions in 2022. Patient reports she is following up with Orthopedic office for knee and shoulder pain to repeat shoulder cortisone injection and consider gel injections for her knee pain and obtain knee bracing. Surgical discussion were also previously attempted. Patient reports cortisone knee injections provide her good but temporary pain relief. She ambulates with slow, antalgic gait with the use of cane. Pain negatively affects her daily functioning, ADLs, ability to walk or stand for longer periods of time. Current regime provides her partial pain relief that allows her to be less symptomatic. Denies any fever, sedation, chest pain or tightness, shortness of breaths, dizziness or urinary retention. Patient reports occasional constipation mildly relieved with stool softener and request script for laxative for as needed basis. [facility] Medical History TIA (transient ischemic attack) Osteoarthritis Elevated cholesterol HTN (hypertension) Arthralgia of shoulder region, right Surgical History Status post carpal tunnel release History of bilateral carpal tunnel release Status post total shoulder arthroplasty Social History Patient Tobacco Use Status: Never used Tobacco Review of Systems Const All systems reviewed & are unremarkable except as noted in HPI and below Physical Exam General: Appears afebrile. Alert and oriented. Mood and affect appropriate. Follows and participates in conversation appropriately. Respiratory effort is unlabored. No cough. Able to transition from sit to stand unassisted. Slow, antalgic gait. Uses cane with ambulation. Back/Spine/Pelvis Other: Lumbar extension and flexion reproduces low back pain. Cervical Spine: loss of normal cervical lordosis and No Cervical spine tenderness Thoracic/Lumbar Spine: thoracic and lumbar spine normal to inspection, Lasegue's sign negative, straight leg raise negative bilaterally, pain with thoraco-lumbar ROM, paraspinal muscle tenderness, No thoraco-lumbar ROM limited, No thoracic spinal tenderness and lumbar spinal tenderness at L4 and at L5 Extrem General: Yes capillary refill normal, Yes no clubbing, cyanosis or edema and Yes no calf tenderness Psych Appearance: grossly normal and well kempt Mental Status: mental status grossly normal Speech and movement: Normal speech and movement present and Clear speech present Affect: normal affect Attitude: cooperative Thought process: Normal thought process present Thought content: Normal thought content present, suicidality (none), no hallucinations and No Depressive thoughts present Insight: Good insight present (Psych) Judgement: Good judgement present (Psych) Assessment & Plan Assessment & Plan (1) Opioid contract exists: Code(s): Z79.891 - residential (current) use of opiate analgesic (2) Bilateral primary osteoarthritis of knee: Code(s): M17.0 - Bilateral primary osteoarthritis of knee (3) Chronic pain syndrome: Code(s): G89.4 - Chronic pain syndrome (4) Bilateral knee pain: Code(s): M25.561 - Pain in right knee; M25.562 - Pain in left knee Qualifiers: Chronicity: chronic Qualified Code(s): M25.561 - Pain in right knee; M25.562 - Pain in left knee; G89.29 - Other chronic pain (5) Bilateral shoulder pain: Code(s): M25.511 - Pain in right shoulder; M25.512 - Pain in left shoulder Plan Bing has shown accountability for her medication regimen and the pill count was accurate. The patient reported no noted side effects. There is no evidence of misuse, abuse or diversion at this time. [employer]PAT reviewed. Script was sent for oxycodone-acetaminophen 5-325 mg to QID prn. Patient was reminded of her upcoming cardiology appointment on 04/30/23 for persistent tachycardia. All questions and concerns have been answered and patient agreed with the plan. Follow up in 4 weeks for pill count and sooner if needed. Medications: Refilled oxycodone Partial Fill upon patient request. 5 mg PO QID 30 days PRN 120 tabs 0RF pain MDD 4 G89.29 - Other chronic pain, G89.4 - Chronic pain syndrome, M25.561 - Pain in right knee, M25.562 - Pain in left knee, Z79.891 - terminal operations supervisor (current) use of opiate analgesic Coding Level of Care Code Est Pt Level 4 (40289) Diagnoses Opioid contract exists Z79.891 Bilateral primary osteoarthritis of knee M17.0 Chronic pain syndrome G89.4 Chronic pain of both knees M25.561; M25.562; G89.29 Chronicity: chronic Bilateral shoulder pain M25.511; M25.512
[2023-04-28 09:29] VITALS: BP 138/77; PULSE 127; O2SAT 99; BMI 35.2
[2023-04-28 09:35] VITALS: PULSE 105; O2SAT 99
== END 2023-04-28 09:36 | disposition home or self-care (01) ==
PROVIDERS: PCP Physician Assistant; Visit Provider Nurse Practitioner Family
DX: Z79.891 Long term (current) use of opiate analgesic (principal); M17.0 Bilateral primary osteoarthritis of knee; G89.4 Chronic pain syndrome; M25.561 Pain in right knee; M25.562 Pain in left knee; G89.29 Other chronic pain; M25.511 Pain in right shoulder; M25.512 Pain in left shoulder
CPT/HCPCS: 99214

== ENCOUNTER → 2023-04-28 09:23 | Outpatient (BNVA) | payer MEDICARE, SELFPAY | PROVIDERS: PCP Physician Assistant; Visit Provider Nurse Practitioner Family | DX: Z51.81 Encounter for therapeutic drug level monitoring (principal); M17.0 Bilateral primary osteoarthritis of knee; M25.561 Pain in right knee; M25.562 Pain in left knee; M25.511 Pain in right shoulder; M25.512 Pain in left shoulder; G89.29 Other chronic pain; Z79.891 Long term (current) use of opiate analgesic | CPT/HCPCS: 99212 ==

== ENCOUNTER 2023-04-30 08:56 | Outpatient (AMB) | payer MEDICARE, SELFPAY ==
[2023-04-30 08:58] VITALS: BP 140/60; PULSE 111; BMI 35.8
--- NOTE | 2023-04-30 08:58 | MHC.OFFVIS ---
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: No Accompanied by: Self / Same As Patient Allergies blue dye Adverse Reaction (Severe, Verified 04/30/23 09:03) n/v ciprofloxacin [From Cipro] Adverse Reaction (Severe, Verified 04/30/23 09:03) mental status changes promethazine [From Phenergan] Adverse Reaction (Intermediate, Verified 04/30/23 09:03) panic attacks tizanidine Adverse Reaction (Mild, Verified 04/30/23 09:03) Palpitations Medication List - Last Reconciled 04/30/23 by Xander Wheatley MD amlodipine 10 mg PO DAILY atorvastatin 40 mg PO DAILY buspirone 5 mg PO BID buspirone 15 mg PO TID cane As directed celecoxib 100 mg PO BID PRN magnesium glycinate 200 mg (2 x 100 mg) PO DAILY 30 days naloxone 4 mg/actuation (Narcan) 4 mg intranasal Q2M PRN oxycodone 5 mg PO QID PRN 30 days MDD 4 pantoprazole 40 mg PO DAILY HPI HPI Comments History of Present Illness Details Thank you for referring Bing in cardiology consultation today for noted elevated heart rate in tachycardia. Patient has longstanding history of hypertension. She has been visiting pain specialty here and every time she comes in for visit heart rate is noted to be elevated. 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 No blood work in the system. She comes in today for office visit and is noted to be tachycardia. She denies any symptoms of palpitations. She denies any symptoms exertional chest pain or shortness of breath. She has markedly limited because of her bilateral knee arthritis and has significant pain but has limited exercise capacity. Denies any leg swelling or shortness of breath. Denies any orthopnea, PND, lightheadedness. She says she does drink adequate water every day. She is on amlodipine for blood pressure control and blood pressure appears well controlled. [facility] Medical History TIA (transient ischemic attack) Osteoarthritis Elevated cholesterol HTN (hypertension) Arthralgia of shoulder region, right Surgical History Status post carpal tunnel release History of bilateral carpal tunnel release Status post total shoulder arthroplasty Social History Patient Tobacco Use Status: Never used Tobacco Review of Systems Const Reports chills, Reports fatigue, Reports fever(s), Reports frequent falls, Reports weakness, Reports weight gain and Reports weight loss ENT Reports dizziness Card Reports chest pain, Reports leg edema, Reports lightheadedness, Reports palpitations, Reports dyspnea, Reports dyspnea on exertion and Reports orthopnea Resp Reports cough, Reports dyspnea and Reports dyspnea on exertion GI Reports bloating and Reports change in bowel habits Musc Reports muscle weakness, Reports numbness and Reports tingling Neuro Reports dizziness, Reports frequent falls, Reports numbness, Reports tingling and Reports weakness Endo Reports fatigue and Reports palpitations Physical Exam Vital Signs: Last Vital Signs Pulse 111 H 04/30/23 08:58 BP 140/60 H 04/30/23 08:58 BMI result Body Mass Index 35.8 Const General: cooperative, comfortable, no acute distress, alert and awake Nutritional Appearance: obese Orientation/consciousness: patient oriented x3 Limitations: ambulation with cane HEENT Head: Yes normocephalic and Yes atraumatic Neck Neck: Yes trachea midline, Yes supple and Yes no JVD Resp Effort & Inspection: normal respiratory effort Auscultation: clear to auscultation bilaterally Cardio Jugular venous distension: no JVD Palpation: normal PMI Rate: regular rate Rhythm: regular rhythm Heart sounds: S1 normal heart sound present, S2 normal heart sound present, no click, no gallops, no murmurs and no rubs GI Auscultation: normal bowel sounds Skin General skin exam: no rashes or lesions noted Neuro General: patient oriented x3 and no focal motor deficits Extrem General: Yes no clubbing, cyanosis or edema Office Procedures EKG Details: EKG shows sinus tachycardia with nonspecific ST T wave changes [id number], Complete Assessment & Plan Assessment & Plan (1) Tachycardia: Code(s): R00.0 - Tachycardia, unspecified Plan: Patient is asymptomatic and sinus tachycardia. Tachycardia is usually secondary to an underlying cause. In her case it could be deconditioning and/or chronic pain. Other etiology such as anemia, dehydration, hyperthyroidism needs to be ruled out. Will obtain lab work today. Will suggest a 2 day Holter monitor to assess overall rate could response to her day-to-day activity and overall average heart rate. If she is on a tachycardia side may benefit from lowering of heart rate with a nonselective beta-miracle which we can use as the antihypertensive as well. Also would suggest an echocardiogram to evaluate for LV systolic function there is any evidence of cardiomyopathy would also consider treatment with beta-blockers. This was discussed with her in details. Adequate pain control was discussed. Avoidance of stimulants such as caffeine and alcohol. Will follow up in the clinic in 4-6 weeks time, sooner p.r.n.. Thank you for allowing me to partake in her care Orders: Orders Magnesium Today R00.0 - Tachycardia, unspecified Basic Metabolic Panel Today R00.0 - Tachycardia, unspecified Complete Blood Count no Diff Today R00.0 - Tachycardia, unspecified TSH reflex Free T4 Today R00.0 - Tachycardia, unspecified CA echo transthoracic complete Today R00.0 - Tachycardia, unspecified ECG holter monitor 48 hour Today R00.0 - Tachycardia, unspecified Coding Level of Care Code New Pt Level 4 (89219) Diagnoses Tachycardia R00.0 CPT Codes EKG - CPT: 79299-[id number], Complete ([id number])
== END 2023-04-30 09:23 | disposition home or self-care (01) ==
PROVIDERS: PCP Physician Assistant; Visit Provider Internal Medicine Cardiovascular Disease
DX: R00.0 Tachycardia, unspecified (principal)
CPT/HCPCS: 93010; 99204

== ENCOUNTER 2023-04-30 08:56 | Outpatient (REF) | payer MEDICARE, SELFPAY ==
[2023-04-30 10:28] LABS: Hematocrit 37.5 % (37.0-47.0); Hemoglobin 11.8 g/dl (12.0-16.0); Mean Corpuscular HGB Conc 31.5 g/dl (31.0-35.0); Mean Corpuscular Hemoglobin 26.7 pg (27.0-33.0); Mean Corpuscular Volume 84.8 fL (80.0-98.0); Mean Platelet Volume 9.8 fL (9.4-12.3); Platelet Count 282 X10*3/uL (160-400); Red Blood Count 4.42 X10*6/uL (4.20-5.50); Red Cell Distribution Width 13.7 % (11.0-16.0); White Blood Count 6.1 X10*3/uL (4.8-10.8)
[2023-04-30 11:00] LABS: Anion Gap 15 (12-20); Blood Urea Nitrogen 19 mg/dL (9-16); Calcium 9.5 mg/dL (8.4-10.2); Carbon Dioxide 27 mmol/L (22-29); Chloride 102 mmol/L (96-108); Estimated Glomerular Filt Rate 46; Glucose Random 161 mg/dL (60-115); Potassium 3.6 mmol/L (3.3-5.1); Sodium 140 mmol/L (135-145)
[2023-04-30 11:19] LABS: TSH reflex Free T4 1.91 uIU/mL (0.32-4.0)
== END 2023-04-30 08:57 | disposition home or self-care (01) ==
LOC: HO.LAB 08:56
PROVIDERS: PCP Physician Assistant; Visit Provider Internal Medicine Cardiovascular Disease
DX: R00.0 Tachycardia, unspecified (principal); I10 Essential (primary) hypertension; Z79.899 Other long term (current) drug therapy
CPT/HCPCS: 36415; 80048; 83735; 84443; 85027; 93005; 99202

== ENCOUNTER 2023-05-22 13:24 | Outpatient (AMB) | payer MEDICARE, SELFPAY ==
--- NOTE | 2023-05-22 13:32 | MHC.OFFVIS ---
Intake Vital Signs 05/22/23 13:34 Height 5 ft 4 in Weight 208 lb BMI 35.7 Intake Visit Reasons: OV- RT shoulder pain Intake Note: Bing is a 77 year old female who presents today for a follow up of her right shoulder pain. Bing is a 77 year old right hand dominant female who presents today for follow up of her right shoulder. Last injection was done on 04/14/23. Hx of left TSA. She would like to discuss surgery. Allergies blue dye Adverse Reaction (Severe, Verified 04/30/23 09:03) n/v ciprofloxacin [From Cipro] Adverse Reaction (Severe, Verified 04/30/23 09:03) mental status changes promethazine [From Phenergan] Adverse Reaction (Intermediate, Verified 04/30/23 09:03) panic attacks tizanidine Adverse Reaction (Mild, Verified 04/30/23 09:03) Palpitations HPI OV- RT shoulder pain HPI Details Bing is a 77 year old woman who returns for a follow-up of her severe right shoulder OA. She has a hx of left TSA in ~2007. She complains of pain in her shoulder for some time . She has pain with daily activity along with limited ROM & some swelling. She received a steroid injection on 01/13/23, with mild & short relief, saying this lasted for ~2 days only. She would like to discuss treatment and is unsure about a repeat injection vs TSA She follows with Pain Management for chronic pain syndrome, and takes 5mg Oxycodone TID, along with Tylenol for her pain. She complains of pain in her lower back [facility] Medical History TIA (transient ischemic attack) Osteoarthritis Elevated cholesterol HTN (hypertension) Arthralgia of shoulder region, right Surgical History Status post carpal tunnel release History of bilateral carpal tunnel release Status post total shoulder arthroplasty Social History Patient Tobacco Use Status: Never used Tobacco Review of Systems Const All systems reviewed & are unremarkable except as noted in HPI and below Physical Exam Vital Signs: BMI result Body Mass Index 35.7 Const General: no acute distress, alert and awake Orientation/consciousness: patient oriented x3 HEENT Head: Yes normocephalic and Yes atraumatic Eyes EOM: EOMs intact bilaterally Resp Effort & Inspection: normal respiratory effort and able to speak in complete sentences Cardio Jugular venous distension: no JVD Skin General skin exam: turgor normal Rashes: no rashes Neuro General: patient oriented x3 Extrem Other: Scapular recruitment required for 90 deg abduction on left 4-/5 empty can min STS Pain with ER to 30 +lift off Psych Appearance: grossly normal Affect: normal affect Attitude: cooperative Results Reviewed Results Reviewed: I personally reviewed relevant radiographs. Proximal migration of left TSA with anterior escape on axillary view Assessment & Plan Assessment & Plan (1) History of left shoulder replacement: Comment: 2007 Code(s): Z96.612 - Presence of left artificial shoulder joint Plan: Bing is extremely hesitant to undergo surgery She has not been happy with her left TSA and describes not being able to use her arm comfortably unitl one year post op and now its been bothering her for ~5 years. I discussed options. She likely would benefit from revision and conversion to reverse but she does NOT want surgery. I do think we should rule out infection and I ordered and ESR and CRP. If infected,the treatment algorithm will differ. Plan Scribed for Anatoliy Reyna MD by Jose Juan Jenkins, director medical affairs, on 05/22/23 at 1:40 PM, EST. Orders: Orders Erythrocyte Sedimentation Rate 05/22/23 Z96.612 - Presence of left artificial shoulder joint C Reactive Protein 05/22/23 Z96.612 - Presence of left artificial shoulder joint Coding Level of Care Code Est Pt Level 4 (93419) Diagnoses History of left shoulder replacement Z96.612
[2023-05-22 13:34] VITALS: BMI 35.7
== END 2023-05-22 15:07 | disposition home or self-care (01) ==
PROVIDERS: PCP Physician Assistant; Visit Provider Orthopaedic Surgery
DX: M25.512 Pain in left shoulder (principal); Z96.612 Presence of left artificial shoulder joint
CPT/HCPCS: 99214

== ENCOUNTER 2023-05-22 13:24 | Outpatient (REF) | payer MEDICARE, SELFPAY ==
[2023-05-22 15:27] LABS: C Reactive Protein 1.24 mg/dL (< or = 0.50)
== END 2023-05-22 13:25 | disposition home or self-care (01) ==
LOC: HO.LAB 13:24
PROVIDERS: PCP Physician Assistant; Visit Provider Orthopaedic Surgery
DX: M19.011 Primary osteoarthritis, right shoulder (principal); M25.511 Pain in right shoulder; Z96.612 Presence of left artificial shoulder joint
CPT/HCPCS: 36415; 85652; 86140; 99212

== ENCOUNTER → 2023-05-27 08:55 | Outpatient (REF) | payer MEDICARE, SELFPAY ==
--- NOTE | 2023-05-27 09:05 | CA_ITS ---
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 Normal LV ejection fraction of 60-65% with mild concentric LVH and severe asymmetric septal hypertrophy with impaired relaxation filling pattern 2. Normal cardiac valvular Doppler 3. No gross pericardial effusion Findings Procedure Information The study quality is limited by the patients inability to tolerate the test. Left Ventricle Normal left ventricular size and systolic function. There is mildly increased left ventricular wall thickness. The visually estimated ejection fraction is between 60-65%. Spectral Doppler is indicative of an impaired relaxation filling pattern. E/E prime ratio is between 8 and 15 consistent with indeterminate filling pressures. There is severe septal asymmetric hypertrophy. Right Ventricle Normal right ventricular cavity size. There is mildly decreased right ventricular systolic function. Atria The left atrium is likely dilated. The right atrium is normal in size. Aortic Valve The aortic valve structure and function is likely normal. There is no aortic valve stenosis. There is no aortic valve regurgitation. Mitral Valve There is mild anterior and posterior mitral leaflet thickening. There is trace mitral valve regurgitation. There is no mitral valve stenosis. Pulmonic Valve The pulmonic valve is likely normal. Tricuspid Valve Normal tricuspid valve structure. Tricuspid regurgitation envelope is inadequate for calculation of right ventricular systolic pressure. Normal right atrial pressure. Great Vessels All visible segments of the aorta are normal in size. The pulmonary artery was not well visualized. There is no dilatation of the ascending aorta measuring 3.10 cm. Venous The inferior vena cava is normal in size and collapses greater than 50% with inspiration. Pericardium/Pleural There is no evidence of pericardial effusion. Prior Study Comparison No prior study available for comparison. Measurements 2D Linear Measurements IVSd: 1.88 0.6-0.9/0.6-1.0 cm LVIDd: 3.80 3.9-5.3/4.2-5.9 cm LVIDd Index: 1.91 2.4-3.2/2.2-3.1 cm/m2 LVIDs: 2.35 2.0-3.6 cm LVPWd: 1.29 0.7-1.1 cm LA Diam: 3.70 2.7-3.8/3.0-4.0 cm LAIDs Index: 1.86 1.5-2.3 cm/m2 LV Mass: 295.09 67-162/88-224 g LV Mass Index: 148.28 43-95/49-115 g/m2 LVOT Diam: 2.10 3.0+(-)1.3 cm 2D Systolic Function EF 4C: 62.10 >55% EF 2C: 62.30 >55% EF BiP: 61.90 >55% Mitral Valve MV Pk E: 0.43 MV PK A: 0.82 MV Decel Time: 275.00 E/A: 0.50 E'Lateral: 6.53 E'Medial: 3.15 E/E' Med: 13.60 E/E' Lat: 6.60 PHT: 81.00 MVA PHT: 2.72 Decel [place]: 1.56 Aortic Valve AoV Pk Fermin: 1.29 AoV Mn Fermin: 0.87 AoV VTI: 0.24 AoV Pk Grad: 7.00 Aov Mn Grad: 3.00 LIANE Cont.VTI: 2.70 LVOT LVOT Pk Fermin: 1.11 LVOT Mn Fermin: 0.68 LVOT VTI: 0.19 LVOT Pk Grad: 5.00 LVOT Mn Grad: 3.00 LVOT Diam: 2.10 LVOT Area: 3.46 Diastolic Function MV Pk E: 0.43 MV Pk A: 0.82 E/A: 0.50 E'Medial: 3.15 E/E' Med: 13.60 E' Laterial: 6.53 E/E' Lat: 6.60 Right Ventricle TAPSE (mm): 15.70 TVS' Fermin: 11.30 Tricuspid Valve RA Press: 3.00 Great Vessels Aorta Sinus of Valsalva: 2.93 2.0-3.[address] [place]: 2.32 1.7-3.4 cm Ao Asc: 3.10 2.1-3.4 cm Updated in Other Vendor System with Status of Final Xander Wheatley MD electronically signed on 05/28/2023 4:33:17 PM with status of Final
--- NOTE | 2023-05-27 09:14 | HM_ITS ---
* Total monitoring time 2 days. * Underlying rhythm is sinus with an average ventricular rate of 100/Min. Range 73 to 155/Min. * About 38% of the time, rate > 100/Min. * Rare supraventricular and ventricular ectopy. * No significant pauses or AV blocks. * No patient markers or diary events. MTDD
== END ==
LOC: HO.CARD 08:55
PROVIDERS: PCP Physician Assistant; Visit Provider Internal Medicine Cardiovascular Disease
DX: R00.0 Tachycardia, unspecified (principal); M17.0 Bilateral primary osteoarthritis of knee; Z79.891 Long term (current) use of opiate analgesic
CPT/HCPCS: 93225; 93306; 99212

== ENCOUNTER → 2023-05-27 09:05 | Outpatient (BNV) | payer MEDICARE, SELFPAY | PROVIDERS: PCP Physician Assistant; Visit Provider Internal Medicine Cardiovascular Disease | DX: R00.0 Tachycardia, unspecified (principal) | CPT/HCPCS: 93227; 93306 ==

== ENCOUNTER 2023-05-27 10:13 | Outpatient (AMB) | payer MEDICARE, SELFPAY ==
--- NOTE | 2023-05-27 10:15 | MHC.OFFVIS ---
Intake Vital Signs 05/27/23 10:24 Height 5 ft 4 in Weight 208 lb BMI 35.7 BP 157/76 H Blood Pressure Location Rt brachial Position Sitting Pulse 117 H Pulse Source Pulse Oximeter Pulse Oximetry (%) 98 Oxygen Delivery Method Room Air Intake Visit Reasons: Medication Count/confirmed Intake Note: Bing comes in today for a pill count to oxycodone, patient should have 20 tablets and presents with 17 tablets which she last took today 05/27/23 at 8am. Pain today 1010. Patient also signed updated opioid contract in office today and was provided signed copy. Tile Helper Required: No Accompanied by: Self / Same As Patient Allergies blue dye Adverse Reaction (Severe, Verified 04/30/23 09:03) n/v ciprofloxacin [From Cipro] Adverse Reaction (Severe, Verified 04/30/23 09:03) mental status changes promethazine [From Phenergan] Adverse Reaction (Intermediate, Verified 04/30/23 09:03) panic attacks tizanidine Adverse Reaction (Mild, Verified 04/30/23 09:03) Palpitations HPI HPI Comments History of Present Illness Details Patient presents today for her pill count. This patient is supposed to have #20 pills in her possession and has #1. Patient is 3 pills short but still within the daily allowance per our opioid program policy. Patient presents in acute distress due to chronic knee and shoulder pain due to advanced OA and requires revision and replacement surgeries but does not want surgeries. She is tearful and has hard time ambulating due to significant knee pain or moving her left arm due to left shoulder pain. Previous cortisone injections have provided her minimal pain relief. Patient reports she underwent cardiac evaluation in April and completed Echo today and was told her tachycardia and high BP is related to increased pain. Echo report is pending. Patient reports at times she has to take 2 pills of oxycodone 5 mg to bring her pain down to 4-5/10 but she cannot obtain same results if she takes one tab every 6 hours. Current cold weather with rainy and snow days have increased her pain intensity. She is very stressed driving herself at this weather and leaves her home early to be on time. She lives at home with her son. Denies any recent cough, cold, infection, fever, chest pain, shortness of breaths, dizziness or other significant changes in medical history since last office visit. PRIOR: Patient presents today for her pill count. This patient is supposed to have #6 pills in her possession and has #9. This demonstrates a responsible attitude in regards to the medication regimen. Patient reports inadequate analgesia with oxycodone 5 mg TID prn with frequent episodes of moderate to severe bilateral knee and shoulder pain due to cold weather changes, climbing stairs and prolonged walking. She has history of left shoulder replacement in 2007. Last right shoulder steroid injection on in December 2022 and bilateral knee steroid inejctions in 2022. Patient reports she is following up with Orthopedic office for knee and shoulder pain to repeat shoulder cortisone injection and consider gel injections for her knee pain and obtain knee bracing. Surgical discussion were also previously attempted. Patient reports cortisone knee injections provide her good but temporary pain relief. She ambulates with slow, antalgic gait with the use of cane. Pain negatively affects her daily functioning, ADLs, ability to walk or stand for longer periods of time. Current regime provides her partial pain relief that allows her to be less symptomatic. Denies any fever, sedation, chest pain or tightness, shortness of breaths, dizziness or urinary retention. Patient reports occasional constipation mildly relieved with stool softener and request script for laxative for as needed basis. [facility] Medical History TIA (transient ischemic attack) Osteoarthritis Elevated cholesterol HTN (hypertension) Arthralgia of shoulder region, right Surgical History Status post carpal tunnel release History of bilateral carpal tunnel release Status post total shoulder arthroplasty Social History Patient Tobacco Use Status: Never used Tobacco Review of Systems Const All systems reviewed & are unremarkable except as noted in HPI and below Physical Exam Vital Signs: Last Vital Signs Pulse 117 H 05/27/23 10:24 BP 157/76 H 05/27/23 10:24 Pulse Ox 98 05/27/23 10:24 Oxygen Delivery Method Room Air 05/27/23 10:24 BMI result Body Mass Index 35.7 General: Appears afebrile. Alert and oriented. Mood and affect appropriate. Follows and participates in conversation appropriately. Respiratory effort is unlabored. No cough. Able to transition from sit to stand unassisted. Slow, antalgic gait. Uses cane with ambulation. Back/Spine/Pelvis Cervical Spine: cervical muscular tenderness and No Cervical spine tenderness Thoracic/Lumbar Spine: thoracic and lumbar spine normal to inspection, Lasegue's sign negative, straight leg raise negative bilaterally, pain with thoraco-lumbar ROM, paraspinal muscle tenderness, No thoraco-lumbar ROM limited, No thoracic spinal tenderness and lumbar spinal tenderness at L4 and at L5 Extrem General: Yes capillary refill normal, Yes no clubbing, cyanosis or edema and Yes no calf tenderness Left upper extremity: shoulder/upper arm (Pain with external rotation. ) Details: inspection abnormal, tenderness Location: of the A-C joint and over the subacromial bursa and crepitus; no swelling and no unsual warmth Right lower extremity: knee (limited ROM due to pain) Details: tenderness Location: of the medial joint line and crepitus; no swelling Left lower extremity: knee (limited ROM due to pain) Details: tenderness Location: of the medial joint line and crepitus; no swelling Psych Appearance: grossly normal and well kempt Mental Status: mental status grossly normal Speech and movement: Normal speech and movement present and Clear speech present Affect: normal affect Attitude: cooperative Thought process: Normal thought process present Thought content: Normal thought content present, suicidality (none), no hallucinations and No Depressive thoughts present Insight: Good insight present (Psych) Judgement: Good judgement present (Psych) Results Reviewed Results Reviewed: XR KNEE, RIGHT XR KNEE, LEFT XR KNEE AP STANDING 08/19/22 FINDINGS: Right knee: Bony mineralization is normal. There is marked asymmetric narrowing of the medial joint space compartment. The lateral joint space compartment is well-maintained. There is a mild varus configuration. There is marked narrowing of the patellofemoral compartment, most pronounced laterally. There is tricompartment peripheral osteophyte formation. No fracture or dislocation is seen. There is chondrocalcinosis. No fracture or dislocation is seen. No foreign body is seen. There is a dystrophic soft tissue calcification within the lower calf. Left knee: Bony mineralization is normal. There is marked asymmetric narrowing of the medial joint space compartment. The lateral joint space compartment is well-maintained. There is a mild varus configuration. There is marked narrowing of the patellofemoral compartment, most pronounced laterally. There is tricompartment peripheral osteophyte formation. There is chondrocalcinosis. No fracture or dislocation is seen. There is a soft tissue calcifications seen adjacent to the medial femoral condyle, possibly a Mendy-Stieda lesion related to a prior MCL injury. IMPRESSION: 1. There is tricompartment osteoarthritic change of the right knee, most pronounced of the medial joint space compartment. There is a secondary mild varus configuration. 2. There is tricompartment osteoarthritic change of the left knee, most pronounced of the medial joint space compartment. There is a secondary mild varus configuration. 3. There is chondrocalcinosis, which may be associated with CPPD. XR SHOULDER, RIGHT 01/13/23 FINDINGS: The bones are intact. No fracture. Glenohumeral and acromioclavicular alignment is anatomic. There is severe narrowing of the glenohumeral joint with [id number] appearance and large marginal osteophyte extending off the inferior aspect of the humeral head. Small marginal osteophyte is seen extending off the inferior aspect of the glenoid. There is minimal degenerative change of the acromioclavicular joint.. No abnormal soft tissue calcifications. IMPRESSION: Severe osteoarthritis of the glenohumeral joint. XR SHOULDER, LEFT 01/13/23 FINDINGS: The bones are intact. No fracture. 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 The hardware appears intact. There is superior subluxation of the humeral head with respect to the glenoid. The acromioclavicular joint is within normal limits. No abnormal soft tissue calcifications. IMPRESSION: 1. No acute bony abnormality. 2. Prosthetic humeral head intact. 3. Superior subluxation of the humeral head with respect to the glenoid. Assessment & Plan Assessment & Plan (1) Bilateral shoulder pain: Code(s): M25.511 - Pain in right shoulder; M25.512 - Pain in left shoulder (2) Bilateral knee pain: Code(s): M25.561 - Pain in right knee; M25.562 - Pain in left knee Qualifiers: Chronicity: chronic Qualified Code(s): M25.561 - Pain in right knee; M25.562 - Pain in left knee; G89.29 - Other chronic pain (3) Chronic pain syndrome: Code(s): G89.4 - Chronic pain syndrome (4) Opioid contract exists: Code(s): Z79.891 - longterm (current) use of opiate analgesic (5) Bilateral primary osteoarthritis of knee: Code(s): M17.0 - Bilateral primary osteoarthritis of knee Plan Patient has shown accountability for her medication regimen and the pill count was short but within one day allowance per opiod policy. The patient reported no noted side effects. There is no evidence of misuse, abuse or diversion at this time. [facility]PAT reviewed. We will send oxycodone-acetaminophen with an increased dose 10 mg TID prn for moderate to severe left shoulder and bilateral knee pain. Patient is a candidate for left shoulder revision surgery and TKA per Ortho but does not want to have surgeries. All questions and concerns have been answered and patient agreed with the plan. Follow up in 4 weeks for pill count and sooner if needed. Medications: Changed From oxycodone Partial Fill upon patient request. 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
[2023-05-27 10:24] VITALS: BP 157/76; PULSE 117; O2SAT 98; BMI 35.7
== END 2023-05-27 10:36 | disposition home or self-care (01) ==
PROVIDERS: PCP Physician Assistant; Visit Provider Nurse Practitioner Family
DX: M25.511 Pain in right shoulder (principal); M25.512 Pain in left shoulder; M25.561 Pain in right knee; M25.562 Pain in left knee; G89.29 Other chronic pain; G89.4 Chronic pain syndrome; Z79.891 Long term (current) use of opiate analgesic; M17.0 Bilateral primary osteoarthritis of knee
CPT/HCPCS: 99214

== ENCOUNTER 2023-06-24 09:39 | Outpatient (AMB) | payer MEDICARE, SELFPAY ==
--- NOTE | 2023-06-24 09:42 | MHC.OFFVIS ---
Intake Vital Signs 06/24/23 09:50 06/24/23 10:00 Height 5 ft 4 in Weight 208 lb 4 oz BMI 35.7 BP 139/70 Blood Pressure Location Rt brachial Position Sitting Pulse 118 H 101 H Pulse Source Pulse Oximeter Pulse Oximeter Pulse Oximetry (%) 98 97 Oxygen Delivery Method Room Air Room Air Intake Visit Reasons: Pill count/confirmed Intake Note: Bing comes in today for a pill count to oxycodone, patient should have 18 tablets and presents with 20 tablets which she last took today 06/24/23 at 8am. 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 This patient is supposed to have #18 pills in her possession and has #20. Patient reports chronic knee and shoulder pain due to advanced OA and requires revision and replacement surgeries but does not want surgeries. Current cold weather have increased her pain intensity. Patient reports current medication regime allows her to be less symptomatic and more functional. Denies any recent cough, cold, infection, fever, chest pain, shortness of breaths, dizziness or other significant changes in medical history since last office visit. [facility] Medical History TIA (transient ischemic attack) Osteoarthritis Elevated cholesterol HTN (hypertension) Arthralgia of shoulder region, right Surgical History Status post carpal tunnel release History of bilateral carpal tunnel release Status post total shoulder arthroplasty Social History Patient Tobacco Use Status: Never used Tobacco Review of Systems Const All systems reviewed & are unremarkable except as noted in HPI and below Physical Exam Vital Signs: Last Vital Signs Pulse 101 H 06/24/23 10:00 BP 139/70 06/24/23 09:50 Pulse Ox 97 06/24/23 10:00 Oxygen Delivery Method Room Air 06/24/23 10:00 BMI result Body Mass Index 35.7 General: Appears afebrile. Alert and oriented. Mood and affect appropriate. Follows and participates in conversation appropriately. Respiratory effort is unlabored. No cough. Able to transition from sit to stand unassisted. Slow, antalgic gait. Uses cane with ambulation. Back/Spine/Pelvis Cervical Spine: No Cervical spine tenderness Thoracic/Lumbar Spine: thoracic and lumbar spine normal to inspection, Lasegue's sign negative, straight leg raise negative bilaterally, pain with thoraco-lumbar ROM, paraspinal muscle tenderness, No thoraco-lumbar ROM limited, No thoracic spinal tenderness and lumbar spinal tenderness at L4 and at L5 Extrem General: Yes capillary refill normal, Yes no clubbing, cyanosis or edema and Yes no calf tenderness Left upper extremity: shoulder/upper arm (Pain with external rotation. ) Details: inspection abnormal, tenderness Location: of the A-C joint and over the subacromial bursa and crepitus; no swelling and no unsual warmth Right lower extremity: knee (limited ROM due to pain) Details: tenderness Location: of the medial joint line and crepitus; no swelling Left lower extremity: knee (limited ROM due to pain) Details: tenderness Location: of the medial joint line and crepitus; no swelling Psych Appearance: grossly normal Mental Status: mental status grossly normal Speech and movement: Normal speech and movement present Affect: normal affect Attitude: cooperative Thought process: Normal thought process present Thought content: Normal thought content present, suicidality (none), no hallucinations and No Depressive thoughts present Insight: Good insight present (Psych) Judgement: Good judgement present (Psych) Results Reviewed Results Reviewed: XR KNEE, RIGHT XR KNEE, LEFT XR KNEE AP STANDING 08/19/22 FINDINGS: Right knee: Bony mineralization is normal. There is marked asymmetric narrowing of the medial joint space compartment. The lateral joint space compartment is well-maintained. There is a mild varus configuration. There is marked narrowing of the patellofemoral compartment, most pronounced laterally. There is tricompartment peripheral osteophyte formation. No fracture or dislocation is seen. There is chondrocalcinosis. No fracture or dislocation is seen. No foreign body is seen. There is a dystrophic soft tissue calcification within the lower calf. Left knee: Bony mineralization is normal. There is marked asymmetric narrowing of the medial joint space compartment. The lateral joint space compartment is well-maintained. There is a mild varus configuration. There is marked narrowing of the patellofemoral compartment, most pronounced laterally. There is tricompartment peripheral osteophyte formation. There is chondrocalcinosis. No fracture or dislocation is seen. There is a soft tissue calcifications seen adjacent to the medial femoral condyle, possibly a Mendy-Stieda lesion related to a prior MCL injury. IMPRESSION: 1. There is tricompartment osteoarthritic change of the right knee, most pronounced of the medial joint space compartment. There is a secondary mild varus configuration. 2. There is tricompartment osteoarthritic change of the left knee, most pronounced of the medial joint space compartment. There is a secondary mild varus configuration. 3. There is chondrocalcinosis, which may be associated with CPPD. XR SHOULDER, RIGHT 01/13/23 FINDINGS: The bones are intact. No fracture. Glenohumeral and acromioclavicular alignment is anatomic. There is severe narrowing of the glenohumeral joint with [id number] appearance and large marginal osteophyte extending off the inferior aspect of the humeral head. Small marginal osteophyte is seen extending off the inferior aspect of the glenoid. There is minimal degenerative change of the acromioclavicular joint.. No abnormal soft tissue calcifications. IMPRESSION: Severe osteoarthritis of the glenohumeral joint. XR SHOULDER, LEFT 01/13/23 FINDINGS: The bones are intact. No fracture. 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 The hardware appears intact. There is superior subluxation of the humeral head with respect to the glenoid. The acromioclavicular joint is within normal limits. No abnormal soft tissue calcifications. IMPRESSION: 1. No acute bony abnormality. 2. Prosthetic humeral head intact. 3. Superior subluxation of the humeral head with respect to the glenoid. Assessment & Plan Assessment & Plan (1) Bilateral shoulder pain: Code(s): M25.511 - Pain in right shoulder; M25.512 - Pain in left shoulder (2) Bilateral knee pain: Code(s): M25.561 - Pain in right knee; M25.562 - Pain in left knee Qualifiers: Chronicity: chronic Qualified Code(s): M25.561 - Pain in right knee; M25.562 - Pain in left knee; G89.29 - Other chronic pain (3) Chronic pain syndrome: Code(s): G89.4 - Chronic pain syndrome (4) Opioid contract exists: Code(s): Z79.891 - assisted (current) use of opiate analgesic (5) Bilateral primary osteoarthritis of knee: Code(s): M17.0 - Bilateral primary osteoarthritis of knee Plan Patient has shown accountability for her medication regimen and the pill count was accurate. The patient reported no noted side effects. There is no evidence of misuse, abuse or diversion at this time. [facility] reviewed. Script was sent for oxycodone-acetaminophen 10 mg to TID prn with advanced date of 06/30/23. Patient will also start gabapentin 100 mg TID, starting at 100 mg at bedtime for the first week and if tolerating it well, titrate it up to TID. Side effects and precautions were discussed with patient. Patient is also aware to take gabapentin 2 hours apart from Percocet or any other SLEEVE FIXER depressant medications. All questions and concerns have been answered and patient agreed with the plan. Follow up in 4 weeks for pill count and sooner if needed. Medications: New gabapentin 100 mg PO TID 30 days 90 caps 0RF pain G89.4 - Chronic pain syndrome, M17.0 - Bilateral primary osteoarthritis of knee Refilled oxycodone Partial Fill upon patient request. 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
[2023-06-24 09:50] VITALS: BP 139/70; PULSE 118; O2SAT 98; BMI 35.7
[2023-06-24 10:00] VITALS: PULSE 101; O2SAT 97
== END 2023-06-24 10:00 | disposition home or self-care (01) ==
PROVIDERS: PCP Physician Assistant; Visit Provider Nurse Practitioner Family
DX: G89.4 Chronic pain syndrome (principal); M25.511 Pain in right shoulder; M25.512 Pain in left shoulder; Z79.891 Long term (current) use of opiate analgesic; M25.561 Pain in right knee; M25.562 Pain in left knee; G89.29 Other chronic pain; M17.0 Bilateral primary osteoarthritis of knee
CPT/HCPCS: 99214

== ENCOUNTER → 2023-06-24 09:39 | Outpatient (BNVA) | payer MEDICARE, SELFPAY | PROVIDERS: PCP Physician Assistant; Visit Provider Nurse Practitioner Family | DX: Z51.81 Encounter for therapeutic drug level monitoring (principal); M25.511 Pain in right shoulder; M25.512 Pain in left shoulder; M25.561 Pain in right knee; M25.562 Pain in left knee; M17.0 Bilateral primary osteoarthritis of knee; G89.29 Other chronic pain; Z79.891 Long term (current) use of opiate analgesic | CPT/HCPCS: 99212 ==

== ENCOUNTER 2023-07-22 09:33 | Outpatient (AMB) | payer MEDICARE, SELFPAY ==
[2023-07-22 09:37] VITALS: BP 160/70; PULSE 106; BMI 35.6
--- NOTE | 2023-07-22 09:37 | A.OFFVIS_ITS ---
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 Allergies blue dye Adverse Reaction (Severe, Verified 07/22/23 09:41) n/v ciprofloxacin [From Cipro] Adverse Reaction (Severe, Verified 07/22/23 09:41) mental status changes promethazine [From Phenergan] Adverse Reaction (Intermediate, Verified 07/22/23 09:41) panic attacks tizanidine Adverse Reaction (Mild, Verified 07/22/23 09:41) Palpitations Medication List - Last Reconciled 07/22/23 by Melyssa Dougherty NP-C amlodipine 10 mg PO DAILY atorvastatin 40 mg PO DAILY cane As directed celecoxib 100 mg PO BID PRN clonazepam (Klonopin) 1 mg PO BID magnesium glycinate 200 mg (2 x 100 mg) PO DAILY 30 days naloxone 4 mg/actuation (Narcan) 4 mg intranasal Q2M PRN oxycodone 10 mg PO Q8H PRN 30 days pantoprazole 40 mg PO DAILY HPI r/s followup after echo/holter/labs HPI Details Bing is a 77-year-old female past medical history of hypertension, hyperlipidemia who was recently evaluated for sinus tachycardia. She had lab work, echocardiogram Holter monitor and she now presents for follow-up. Today she reports that she does not notice any heart palpitations. Her primary complaint is of bilateral knee arthritis and low back pain. She denies chest discomfort at rest or with activity. No shortness of breath, lightheadedness, presyncope, syncope, PND, orthopnea or edema. She does only light physical activities. She does take her meds as directed. [facility] Medical History TIA (transient ischemic attack) Osteoarthritis Elevated cholesterol HTN (hypertension) Arthralgia of shoulder region, right Surgical History Status post carpal tunnel release History of bilateral carpal tunnel release Status post total shoulder arthroplasty Social History Patient Tobacco Use Status: Never used Tobacco Review of Systems Const All systems reviewed & are unremarkable except as noted in HPI and below ENT Denies dizziness Card Denies chest pain, Denies chest pain at rest, Denies chest pain with activity, Denies rapid heart rate, Denies pedal edema, Denies edema, Denies leg edema, Denies lightheadedness, Denies palpitations, Denies dyspnea, Denies dyspnea on exertion and Denies orthopnea Resp Denies cough, Denies dyspnea and Denies dyspnea on exertion GI Denies hematochezia and Denies change in stool character Musc Details: bilateral knee pain and low back pain Reports abnormal gait, Reports limited range of motion, Denies muscle cramps, Denies muscle weakness, Denies numbness, Denies radiating pain into limb, Denies stiffness and Denies tingling Neuro Reports abnormal gait, Denies dizziness, Denies numbness and Denies tingling Endo Denies palpitations Physical Exam Vital Signs: Last Vital Signs Pulse 106 H 07/22/23 09:37 BP 160/70 H 07/22/23 09:37 BMI result Body Mass Index 35.6 Const General: cooperative, healthy appearing, comfortable and no acute distress Orientation/consciousness: patient oriented x3 Neck Neck: Yes normal visual inspection Resp Effort & Inspection: normal respiratory effort Auscultation: clear to auscultation bilaterally, no rales, no rhonchi and no wheezes Cardio Jugular venous distension: no JVD Rate: tachycardic Rhythm: regular rhythm Heart sounds: S1 normal heart sound present, S2 normal heart sound present, no murmurs and no rubs Neuro General: patient oriented x3 Extrem General: Yes normal to inspection Psych Appearance: grossly normal Mental Status: mental status grossly normal Speech and movement: Normal speech and movement present Assessment & Plan Assessment & Plan (1) Tachycardia: Code(s): R00.0 - Tachycardia, unspecified Plan: Cardiac evaluation for sinus tachycardia. EKG done last visit 04/30/2023 showing sinus tachycardia, rate 111. She had lab work done on 04/30 to assess for anemia, electrolyte abnormalities, or thyroid dysfunction which showed no significant abnormalities. A Holter monitor done 05/27/2023 to for 2 days shows sinus rhythm with average heart rate 100, 38% of the time heart rate over 100, pulse rate range 73 to 155. An echocardiogram done 05/27/2023 showed EF 60-65%, mild concentric LVH, severe asymmetric hypertrophy with impaired relaxation. Today she denies heart palpitations and has no clinical signs of heart failure on exam. Blood pressure is elevated initially at 160/70, recheck done by me 130 . With her elevated heart rate and severe asymmetric hypertrophy, mild LVH will treat her for heart rate and blood pressure control. Will start on metoprolol XL 25 mg daily. She tells me she is very sensitive to medications so will start with a low dose and titrate up as tolerated. At present no clear cause for her tachycardia, could be related to deconditioning or chronic pain. Reviewed good hydration, activity as tolerated. 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
== END 2023-07-22 10:07 | disposition home or self-care (01) ==
PROVIDERS: PCP Physician Assistant; Visit Provider Nurse Practitioner Family
DX: R00.0 Tachycardia, unspecified (principal); I10 Essential (primary) hypertension; I42.2 Other hypertrophic cardiomyopathy
CPT/HCPCS: 99214

== ENCOUNTER → 2023-07-22 09:33 | Outpatient (BNVA) | payer MEDICARE, SELFPAY | PROVIDERS: PCP Physician Assistant; Visit Provider Nurse Practitioner Family | DX: R00.0 Tachycardia, unspecified (principal); I10 Essential (primary) hypertension; I42.2 Other hypertrophic cardiomyopathy | CPT/HCPCS: 99212 ==

== ENCOUNTER 2023-07-25 09:33 | Outpatient (AMB) | payer MEDICARE, SELFPAY ==
--- NOTE | 2023-07-25 09:34 | A.OFFVIS_ITS ---
Intake Vital Signs 07/25/23 09:42 Height 5 ft 4 in Weight 207 lb BMI 35.5 BP 138/76 Blood Pressure Location Lt brachial Position Sitting Respiration 12 Pulse 100 Pulse Source Pulse Oximeter Pulse Oximetry (%) 96 Oxygen Delivery Method Room Air Intake Visit Reasons: Pill Count Intake Note: Patient comes in for pill count. Reports pain 10/. Allergies blue dye Adverse Reaction (Severe, Verified 07/25/23 09:43) n/v ciprofloxacin [From Cipro] Adverse Reaction (Severe, Verified 07/25/23 09:43) mental status changes promethazine [From Phenergan] Adverse Reaction (Intermediate, Verified 07/25/23 09:43) panic attacks tizanidine Adverse Reaction (Mild, Verified 07/25/23 09:43) Palpitations HPI HPI Comments History of Present Illness Details Patient presents today for her pill count. Patient is supposed to have #18 pills in her possession and has #25. This demonstrates a responsible attitude in regards to the medication regimen. Patient reports chronic knee and shoulder pain due to advanced OA and requires revision and replacement surgeries but does not want surgeries. She has follow up with Dr. Reyna today to discuss revision and potentially receive knee injections as well. She continues to endorse significant pain with walking, weight bearing and cold weather. Patient reports current medication regime with increase to oxycodone to 10 mg TID prn (from 5 mg QID) allows her to be less symptomatic and more functional. Denies any recent cough, cold, infection, fever, chest pain, shortness of breaths, dizziness or other significant changes in medical history since last office visit. Patient reports she recently started on clonazepam for panic attacks and finds this very beneficial. She has been taking clonazepam at least 2 hours apart from oxycodone. Patient reports she has not tried gabapentin and plans to hold off on it at this time. She reports being very sensitive to medications and afraid to trial any medications for now. She was also started on metoprolol ER 25 mg per Cardiology for tachycardia with upcoming follow up in 3 months. [facility] Medical History TIA (transient ischemic attack) Osteoarthritis Elevated cholesterol HTN (hypertension) Arthralgia of shoulder region, right Surgical History Status post carpal tunnel release History of bilateral carpal tunnel release Status post total shoulder arthroplasty Social History Patient Tobacco Use Status: Never used Tobacco Review of Systems Const All systems reviewed & are unremarkable except as noted in HPI and below Card Denies chest pain at rest, Denies syncope, Reports rapid heart rate, Denies lightheadedness, Denies palpitations, Reports dyspnea on exertion (with prolonged walking) and Denies orthopnea Resp Reports dyspnea on exertion (with prolonged walking) Neuro Denies syncope Endo Denies palpitations Physical Exam General: Appears afebrile. Alert and oriented. Mood and affect appropriate. Follows and participates in conversation appropriately. Respiratory effort is unlabored. No cough. Able to transition from sit to stand unassisted. Slow, antalgic gait. Uses cane with ambulation. Back/Spine/Pelvis Cervical Spine: No Cervical spine tenderness Thoracic/Lumbar Spine: thoracic and lumbar spine normal to inspection, Lasegue's sign negative, straight leg raise negative bilaterally, pain with thoraco-lumbar ROM, paraspinal muscle tenderness, No thoraco-lumbar ROM limited, No thoracic spinal tenderness and lumbar spinal tenderness at L4 and at L5 Extrem General: Yes capillary refill normal, Yes no clubbing, cyanosis or edema and Yes no calf tenderness Right lower extremity: knee (limited ROM due to pain) Details: tenderness Location: of the medial joint line and crepitus; no swelling Left lower extremity: knee (limited ROM due to pain) Details: tenderness Location: of the medial joint line and crepitus; no swelling Psych Appearance: grossly normal Mental Status: mental status grossly normal Speech and movement: Normal speech and movement present Affect: normal affect Attitude: cooperative Thought process: Normal thought process present Thought content: Normal thought content present, suicidality (none), no hallucinations and Depressive thoughts present Insight: Good insight present (Psych) Judgement: Good judgement present (Psych) Results Reviewed Results Reviewed: XR KNEE, RIGHT XR KNEE, LEFT XR KNEE AP STANDING 08/19/22 FINDINGS: Right knee: Bony mineralization is normal. There is marked asymmetric narrowing of the medial joint space compartment. The lateral joint space compartment is well-maintained. There is a mild varus configuration. There is marked narrowing of the patellofemoral compartment, most pronounced laterally. There is tricompartment peripheral osteophyte formation. No fracture or dislocation is seen. There is chondrocalcinosis. No fracture or dislocation is seen. No foreign body is seen. There is a dystrophic soft tissue calcification within the lower calf. Left knee: Bony mineralization is normal. There is marked asymmetric narrowing of the medial joint space compartment. The lateral joint space compartment is well-maintained. There is a mild varus configuration. There is marked narrowing of the patellofemoral compartment, most pronounced laterally. There is tricompartment peripheral osteophyte formation. There is chondrocalcinosis. No fracture or dislocation is seen. There is a soft tissue calcifications seen adjacent to the medial femoral condyle, possibly a Mendy-Stieda lesion related to a prior MCL injury. IMPRESSION: 1. There is tricompartment osteoarthritic change of the right knee, most pronounced of the medial joint space compartment. There is a secondary mild varus configuration. 2. There is tricompartment osteoarthritic change of the left knee, most pronounced of the medial joint space compartment. There is a secondary mild varus configuration. 3. There is chondrocalcinosis, which may be associated with CPPD. XR SHOULDER, RIGHT 01/13/23 FINDINGS: The bones are intact. No fracture. Glenohumeral and acromioclavicular alignment is anatomic. There is severe narrowing of the glenohumeral joint with [id number] appearance and large marginal osteophyte extending off the inferior aspect of the humeral head. Small marginal osteophyte is seen extending off the inferior aspect of the glenoid. There is minimal degenerative change of the acromioclavicular joint.. No abnormal soft tissue calcifications. IMPRESSION: Severe osteoarthritis of the glenohumeral joint. XR SHOULDER, LEFT 01/13/23 FINDINGS: The bones are intact. No fracture. 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 The hardware appears intact. There is superior subluxation of the humeral head with respect to the glenoid. The acromioclavicular joint is within normal limits. No abnormal soft tissue calcifications. IMPRESSION: 1. No acute bony abnormality. 2. Prosthetic humeral head intact. 3. Superior subluxation of the humeral head with respect to the glenoid. 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 The patient reported no noted side effects. There is no evidence of misuse, abuse or diversion at this time. [employer] reviewed. Script was sent for oxycodone-acetaminophen 10 mg to TID prn with advanced date of 08/01/23. Patient was recently started on clonazepam for panic attacks by her PCP. Discussed with the patient the risks associated with benzodiazepine and opioid use. Patient is aware and verbalized an agreement to take the medications at least two hours apart and she has Narcan at home.? Follow up with Orthopedic Provider as scheduled. All questions and concerns have been answered and patient agreed with the plan. Follow up in 4 weeks for pill count and sooner if needed. Medications: Refilled oxycodone Partial Fill upon patient request. 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
[2023-07-25 09:42] VITALS: BP 138/76; PULSE 100; RESP 12; O2SAT 96; BMI 35.5
== END 2023-07-25 09:53 | disposition home or self-care (01) ==
LOC: HO.PMC 09:33
PROVIDERS: PCP Physician Assistant; Visit Provider Nurse Practitioner Family
DX: M25.511 Pain in right shoulder (principal); M25.512 Pain in left shoulder; M25.561 Pain in right knee; M25.562 Pain in left knee; G89.29 Other chronic pain; G89.4 Chronic pain syndrome; Z79.891 Long term (current) use of opiate analgesic; M17.0 Bilateral primary osteoarthritis of knee; M19.011 Primary osteoarthritis, right shoulder
CPT/HCPCS: 99214

== ENCOUNTER → 2023-07-25 09:33 | Outpatient (BNVA) | payer MEDICARE, SELFPAY | PROVIDERS: PCP Physician Assistant; Visit Provider Nurse Practitioner Family | DX: M17.0 Bilateral primary osteoarthritis of knee (principal); Z51.81 Encounter for therapeutic drug level monitoring; M25.512 Pain in left shoulder; M19.011 Primary osteoarthritis, right shoulder; G89.29 Other chronic pain; Z79.891 Long term (current) use of opiate analgesic; Z96.612 Presence of left artificial shoulder joint | CPT/HCPCS: 20610; 99212; J0665; J1100 ==

== ENCOUNTER 2023-07-25 09:52 | Outpatient (AMB) | payer MEDICARE, SELFPAY ==
--- NOTE | 2023-07-25 10:28 | A.OFFVIS_ITS ---
Intake Intake Visit Reasons: OV-Lab results review - Discuss Lt TSA Revision Intake Note: Bing is a 77 year old right hand dominant female who presents today for follow up of her Left shoulder/Review Labs. Hx of left TSA which has cause consistent discomfort. At her last visit it was discussed that she would benefit from revision but she is hesitant to proceed with procedure. ESR and CRP were ordered to check for infection. Last injection was done on 04/14/23 in the right shoulder Allergies blue dye Adverse Reaction (Severe, Verified 07/25/23 09:43) n/v ciprofloxacin [From Cipro] Adverse Reaction (Severe, Verified 07/25/23 09:43) mental status changes promethazine [From Phenergan] Adverse Reaction (Intermediate, Verified 07/25/23 09:43) panic attacks tizanidine Adverse Reaction (Mild, Verified 07/25/23 09:43) Palpitations HPI OV-Lab results review - Discuss Lt TSA Revision HPI Details Lab values for Bing were elevated CRP and ESR was WNL. She continues to have left shoulder pain. She also complains of bilateral knee pain. She has known bilateral knee OA. She has difficulty sleeping and is unable to walk without a cane. Her shoulder pain is unchanged. [facility] Medical History TIA (transient ischemic attack) Osteoarthritis Elevated cholesterol HTN (hypertension) Arthralgia of shoulder region, right Surgical History Status post carpal tunnel release History of bilateral carpal tunnel release Status post total shoulder arthroplasty Social History Patient Tobacco Use Status: Never used Tobacco Physical Exam Const General: cooperative, healthy appearing, no acute distress and well groomed Orientation/consciousness: oriented to person and oriented to place HEENT Head: Yes normal to inspection, Yes normocephalic and Yes atraumatic Eyes General: appearance normal, both eyes and all related structures Alignment and Position: alignment normal Conjunctivae: conjunctivae normal EOM: EOMs intact bilaterally Neck Neck: Yes normal visual inspection and Yes trachea midline Resp Other: No rerpiratory distress Effort & Inspection: normal respiratory effort and able to speak in complete sentences Cardio Other: Palpable radial pulse with no appreciable rythmic abnormalities GI Other: No abdominal distension Back/Spine/Pelvis Cervical Spine: normal cervical lordosis and cervical ROM normal Skin General skin exam: no rashes or lesions noted Neuro General: oriented to person, oriented to place and gait normal Extrem Other: global tenderness bilateral knees Left shoulder with pain on passive and active ROM Office Procedures Joint Injection/Drain Joint Injection/Drain Details: Injected 1 mL of Decadron and 3 mL 1% lidocaine and 3 mL of 0.25% Marcaine. Site was prepped using aseptic technique. Patient tolerated the procedure well. Primary Site: right knee Secondary Site: left knee Approach Used: anterolateral Coding - Large joint - Glenohumeral/Tronchanteric Bursa/Intraarticular Procedure code (CPT) selection complete Assessment & Plan Assessment & Plan (1) History of left shoulder replacement: Comment: 2007 Code(s): Z96.612 - Presence of left artificial shoulder joint Plan: I am still trying to rule out infection for Bing's left shoulder. Her CRP is elevated. I would like to aspirate but would prefer to so with radiographic guidance as she does not want to do it in the office. I will coordinate to do in operating room under local. I discussed this with her and explained the procedure. (2) Bilateral knee pain: Code(s): M25.561 - Pain in right knee; M25.562 - Pain in left knee Qualifiers: Chronicity: chronic Qualified Code(s): M25.561 - Pain in right knee; M25.562 - Pain in left knee; G89.29 - Other chronic pain Plan: I injected both knee today. She may continue activity as tolerated. Coding Level of Care Code Est Pt Level 4 (65741) Diagnoses History of left shoulder replacement Z96.612 Chronic pain of both knees M25.561; M25.562; G89.29 Chronicity: chronic CPT Codes Coding - Large joint: 75782 - Large joint ([id number]) Coding - Joint 7: 11086 - Glenohumeral/Tronchanteric Bursa/Intraarticular ([id number])
== END 2023-07-25 11:07 | disposition home or self-care (01) ==
PROVIDERS: PCP Physician Assistant; Visit Provider Orthopaedic Surgery
DX: M25.512 Pain in left shoulder (principal); Z96.612 Presence of left artificial shoulder joint; M25.561 Pain in right knee; M25.562 Pain in left knee; G89.29 Other chronic pain
CPT/HCPCS: 20610; 99214

== ENCOUNTER 2023-08-22 09:32 | Outpatient (AMB) | payer MEDICARE, SELFPAY ==
--- NOTE | 2023-08-22 09:34 | A.OFFVIS_ITS ---
Intake Vital Signs 08/22/23 09:42 Height 5 ft 4 in Weight 197 lb 6 oz BMI 33.9 BP 146/75 H Blood Pressure Location Rt brachial Position Sitting Pulse 107 H Pulse Source Pulse Oximeter Pulse Oximetry (%) 99 Oxygen Delivery Method Room Air Intake Visit Reasons: pill count Intake Note: Bing comes in today for a pill count to oxycodone, patient should have 27 tablets and presents with 35 tablets which she last took today 08/22/23 at 4am. 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 Patient is supposed to have #27 pills in her possession and has #35. This demonstrates a responsible attitude in regards to the medication regimen. She avoids taking opioid medication with clonazepam which she takes for panic attacks. Patient reports chronic bilateral knee and shoulder pain due to advanced OA and requires revision and replacement surgeries but does not want surgeries. She recently got knee cortisone injections on 07/25/[address] Reyna and has left shoulder arthroscopy scheduled for 09/10/23 for potential aspiration to rule out infection due to elevated CRP. Patient reports recent knee injections were not helpful and she is considering gel injections at next follow up at Orthopedics. Denies any recent cough, cold, infection, fever, chest pain, shortness of breaths, dizziness or other significant changes in medical history since last office visit. [facility] Medical History TIA (transient ischemic attack) Osteoarthritis Elevated cholesterol HTN (hypertension) Arthralgia of shoulder region, right Surgical History Status post carpal tunnel release History of bilateral carpal tunnel release Status post total shoulder arthroplasty Social History Patient Tobacco Use Status: Never used Tobacco Review of Systems Const All systems reviewed & are unremarkable except as noted in HPI and below Physical Exam General: Appears afebrile. Alert and oriented. Mood and affect appropriate. Follows and participates in conversation appropriately. Respiratory effort is unlabored. No cough. Able to transition from sit to stand unassisted. Slow, antalgic gait. Uses cane with ambulation. Bilateral knees with global tenderness, limited ROM. Back/Spine/Pelvis Cervical Spine: No Cervical spine tenderness Thoracic/Lumbar Spine: thoracic and lumbar spine normal to inspection, Lasegue's sign negative, straight leg raise negative bilaterally, pain with thoraco-lumbar ROM, paraspinal muscle tenderness, No thoraco-lumbar ROM limited, No thoracic spinal tenderness and lumbar spinal tenderness at L4 and at L5 Extrem General: Yes capillary refill normal, Yes no clubbing, cyanosis or edema and Yes no calf tenderness Left upper extremity: shoulder/upper arm (Limited ROM due to pain.) Details: tenderness Location: of the A-C joint, over the biceps tendon and over the subacromial bursa and crepitus; no swelling Psych Appearance: grossly normal and well kempt Mental Status: mental status grossly normal Speech and movement: Normal speech and movement present and Clear speech present Affect: normal affect and Sad affect present Attitude: cooperative Thought process: Normal thought process present Thought content: Normal thought content present, suicidality (none), no hallucinations and Depressive thoughts present Insight: Good insight present (Psych) Judgement: Good judgement present (Psych) Results Reviewed Results Reviewed: XR KNEE, RIGHT XR KNEE, LEFT XR KNEE AP STANDING 08/19/22 FINDINGS: Right knee: Bony mineralization is normal. There is marked asymmetric narrowing of the medial joint space compartment. The lateral joint space compartment is well-maintained. There is a mild varus configuration. There is marked narrowing of the patellofemoral compartment, most pronounced laterally. There is tricompartment peripheral osteophyte formation. No fracture or dislocation is seen. There is chondrocalcinosis. No fracture or dislocation is seen. No foreign body is seen. There is a dystrophic soft tissue calcification within the lower calf. Left knee: Bony mineralization is normal. There is marked asymmetric narrowing of the medial joint space compartment. The lateral joint space compartment is well-maintained. There is a mild varus configuration. There is marked narrowing of the patellofemoral compartment, most pronounced laterally. There is tricompartment peripheral osteophyte formation. There is chondrocalcinosis. No fracture or dislocation is seen. There is a soft tissue calcifications seen adjacent to the medial femoral condyle, possibly a Mendy-Stieda lesion related to a prior MCL injury. IMPRESSION: 1. There is tricompartment osteoarthritic change of the right knee, most pronounced of the medial joint space compartment. There is a secondary mild varus configuration. 2. There is tricompartment osteoarthritic change of the left knee, most pronounced of the medial joint space compartment. There is a secondary mild varus configuration. 3. There is chondrocalcinosis, which may be associated with CPPD. XR SHOULDER, RIGHT 01/13/23 FINDINGS: The bones are intact. No fracture. Glenohumeral and acromioclavicular alignment is anatomic. There is severe narrowing of the glenohumeral joint with afhy-ov-scsw appearance and large marginal osteophyte extending off the inferior aspect of the humeral head. Small marginal osteophyte is seen extending off the inferior aspect of the glenoid. There is minimal degenerative change of the acromioclavicular joint.. No abnormal soft tissue calcifications. IMPRESSION: Severe osteoarthritis of the glenohumeral joint. XR SHOULDER, LEFT 01/13/23 FINDINGS: The bones are intact. No fracture. 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 The hardware appears intact. There is superior subluxation of the humeral head with respect to the glenoid. The acromioclavicular joint is within normal limits. No abnormal soft tissue calcifications. IMPRESSION: 1. No acute bony abnormality. 2. Prosthetic humeral head intact. 3. Superior subluxation of the humeral head with respect to the glenoid. Assessment & Plan Assessment & Plan (1) Bilateral shoulder pain: Code(s): M25.511 - Pain in right shoulder; M25.512 - Pain in left shoulder (2) Bilateral knee pain: Code(s): M25.561 - Pain in right knee; M25.562 - Pain in left knee Qualifiers: Chronicity: chronic Qualified Code(s): M25.561 - Pain in right knee; M25.562 - Pain in left knee; G89.29 - Other chronic pain (3) Chronic pain syndrome: Code(s): G89.4 - Chronic pain syndrome (4) Opioid contract exists: Code(s): Z79.891 - penitentiary (current) use of opiate analgesic (5) Bilateral primary osteoarthritis of knee: Code(s): M17.0 - Bilateral primary osteoarthritis of knee (6) Osteoarthritis of right shoulder: Code(s): M19.011 - Primary osteoarthritis, right shoulder Plan Patient has shown accountability for her medication regimen and the pill count was accurate. The patient reported no noted side effects. There is no evidence of misuse, abuse or diversion at this time. [employer] reviewed. Script was sent for oxycodone-acetaminophen 10 mg to TID prn with advanced date of 09/02/23. Discussed with the patient the risks associated with benzodiazepine and opioid use. Patient is aware and verbalized an agreement to take the clonazepam and oxycodone at least two hours apart and she has Narcan at home.? Follow up with Orthopedic Provider as scheduled for bilateral knee and left shoulder pain. All questions and concerns have been answered and patient agreed with the plan. Follow up in 4 weeks for pill count and sooner if needed. Medications: Refilled oxycodone Partial Fill upon patient request. 10 mg PO Q8H 30 days PRN 90 tabs 0RF pain G89.4 - Chronic pain syndrome, M25.511 - Pain in right shoulder, M25.512 - Pain in left shoulder, M25.561 - Pain in right knee, M25.562 - Pain in left knee, Z79.891 - watermaster (current) use of opiate analgesic Coding Level of Care Code Est Pt Level 4 (10342) Diagnoses Bilateral shoulder pain M25.511; M25.512 Chronic pain of both knees M25.561; M25.562; G89.29 Chronicity: chronic Chronic pain syndrome G89.4 Opioid contract exists Z79.891 Bilateral primary osteoarthritis of knee M17.0 Osteoarthritis of right shoulder M19.011
[2023-08-22 09:42] VITALS: BP 146/75; PULSE 107; O2SAT 99; BMI 33.9
== END 2023-08-22 09:51 | disposition home or self-care (01) ==
PROVIDERS: PCP Physician Assistant; Visit Provider Nurse Practitioner Family
DX: G89.4 Chronic pain syndrome (principal); M25.511 Pain in right shoulder; M25.512 Pain in left shoulder; Z79.891 Long term (current) use of opiate analgesic; M25.561 Pain in right knee; M25.562 Pain in left knee; G89.29 Other chronic pain; M17.0 Bilateral primary osteoarthritis of knee; M19.011 Primary osteoarthritis, right shoulder
CPT/HCPCS: 99214

== ENCOUNTER → 2023-08-22 09:32 | Outpatient (BNVA) | payer MEDICARE, SELFPAY | PROVIDERS: PCP Physician Assistant; Visit Provider Nurse Practitioner Family | DX: Z51.81 Encounter for therapeutic drug level monitoring (principal); M25.511 Pain in right shoulder; M25.512 Pain in left shoulder; M25.561 Pain in right knee; M25.562 Pain in left knee; M17.0 Bilateral primary osteoarthritis of knee; M19.011 Primary osteoarthritis, right shoulder; Z79.891 Long term (current) use of opiate analgesic | CPT/HCPCS: 99212 ==